=== PATIENT | female | born 1970 | race Caucasian/White ===

== ENCOUNTER 2022-01-17 07:55 | Outpatient (CLI) | payer OTHER, SELFPAY ==
--- NOTE | 2022-01-17 | TOBX_PTH ---
PATIENT: WESTON SALEEM LOC: [facility] U#:[id number] AGE/SX: 51/F ROOM: RE01/17/[address]: Dr. 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 Negative for malignancy. See comment. SJ:gigi 01/19/2022 SJ:gigi 02/02/2022 COMMENT Special stain for fungi is negative for organisms; matched control is appropriate. Clinical correlation and appropriate follow up are necessary. Case has been reviewed in consultation with Dr. Hrer who concurs with the above diagnosis. IDC:AM MICROSCOPIC DESCRIPTION Slides are reviewed. GROSS DESCRIPTION Received in fixative is one container labeled with the patient's name and designated tongue mass. The specimen consists of a piece of clayton mucosal tissue measuring 0.7 x 0.7 x 0.3 cm. The specimen is inked, serially sectioned and submitted entirely in one cassette. / CURTIS:gigi 01/18/2022 TC:5 CPT: 21260, 01446
== END 2022-01-17 23:59 | disposition home or self-care (01) ==
LOC: LABSPEC 02-02 10:15
PROVIDERS: Visit Provider Otolaryngology
DX: D37.02 Neoplasm of uncertain behavior of tongue (principal)
CPT/HCPCS: 88305; 88312

== ENCOUNTER → 2023-11-11 | Outpatient (CLI) | payer OTHER, SELFPAY ==
--- OUTSIDE RECORDS SUMMARY | 2023-11-11 08:49 | XMS RPT_ITS | CCD ---
Author Name Unknown Address [address] [place] [address] Organization [facility] Care Team Providers Care Tile Fitter Name Role Phone RAUDEL PAYTON, DR KRUSE Primary Care Physician [phone] Gadiel Aguilar DO Primary Care Provider Jocelyn bryonble GADIEL AGUILAR Primary Care Unavailable GADIEL AGUILAR Primary Care Unavailable GADIEL AGUILAR Primary Care Unavailable ROMAR DO, DR KRUSE Attending Unavailable ROMAR DO, DR KRUSE Primary Care Unavailable MARGY FELDER, DR ALISHA Whitfield Attending Unavail able ROMAR DO, DR KRUSE Primary Care Unavailable ROMAR DO, DR KRUSE Attending Unavailable ROMAR DO, DR KRUSE Primary Care Unavailable STEVIE ARIZMENDI MD Attending Unavaila ble ROMAR DO, DR KRUSE Primary Care Unavailable HIMA SEN MD Attending Unavail able ROMAR DO, DR KRUSE Primary Care Unavailable ROMAR DO, DR KRUSE Attending Unavailable ROMAR DO, DR KRUSE Primary Care Unavailable ROMAR DO, DR KRUSE Attending Unavailable ROMAR DO, DR KRUSE Primary Care Unavailable ROMAR DO, DR KRUSE Attending Unavailable ROMAR DO, DR KRUSE Primary Care Unavailable UGO FELDER, STEVIE Attending Unavaila ble ROMAR DO, DR KRUSE Primary Care Unavailable UGO FELDER, STEVIE Attending Unavaila ble ROMAR DO, DR KRUSE Primary Care Unavailable Allergies Allergy Classification Reported Allergen(s) Allergy Type Date of Onset Reaction(s) Facility (8 sources) Adhesive Tape Allergy to substance Eruption of skin (disorder) [facility] (2 sources) Adhesive Tape-Silicones; Translations: [ADHESIVE TAPE-SILICONES] Drug Intolerance 2 Other: See Comments [facility] (5 sources) Film dressing Allergy to substance blisters [facility] Medications Current Medications Medication Drug Class(es) Dates Sig (Normalized) Sig (Original) Percocet (2 sources) Opioid Agonist Start: 05-05-2018 take 1 tablet by mouth every four hours Percocet 325/5 Dose = 2 tab(s), Oral, q4h, 0 Refill(s) Start Date: 05/05/18 Status: Ordered Completed/Discontinued Medications Medication Drug Class(es) Dates Sig (Normalized) Sig (Original) 0.25 MG, 0.5 MG Dose 3 ML semaglutide 0.68 MG/ML Pen Injector (1 source) Start: 06-07-2023 End: 07-07-2023 inject 0.5 mg by subcutaneous injection every week semaglutide 2 mg/3 mL (0.25 mg or 0.5 mg dose) subcutaneous solution Dose : 0.25 mg =, Subcutaneous, qWeek, rotate injection sites, # 1 EA, 0 Refill(s), Pharmacy: [facility]/pharmacy #[id number], 176.9, cm, 06/07/23 13:22:00 EDT, Height, kg, 06/07/23 13:22:00 EDT, Dosing Weight Start Date: 06/07/23 Stop Date: 07/07/23 Status: Ordered acetaminophen 325 mg / HYDROcodone bitartrate 5 mg oral tablet (1 source) Opioid Agonist Start: 05-22-2020 End: 05-25-2020 take 1 tablet by mouth every four hours as needed for pain Garrard 325- 5 mg oral tablet Dose = 1 tab(s), Oral, q4h, PRN as needed for pain, # 12 tab(s), 0 Refill(s), Boil, 138.6 Start Date: 05/22/20 Stop Date: 05/25/20 Status: Ordered Albuterol (18 sources) beta2-Adrenergic Agonist Start: 01-03-2022 End: 02-02-2022 take 2 puff(s) by inhalation every four hours as needed for wheezing Ventolin HFA MDI (90 mcg/inh) inhalation aerosol 2 puff(s), Inhalation, q4h, PRN Shortness of breath or wheezing, use with spacer chamber. PHARMACY PLEASE DISPENSE SPACER. Okay to substitute alternative brand if needed for insurance., # 1 EA, 0 Refill(s), other reason (Rx) Start Date: 01/03/22 Stop Date: 02/02/22 Status: Ordered Problems Active Problems Problem Classification Problem Date Documented Date Episodic/Chronic Biliary tract disease (10 sources) Biliary calculus; Translations: [Cholelithiasis with obstruction] 04-17-2018 Episodic Chronic obstructive pulmonary disease and bronchiectasis (8 sources) Chronic bronchitis 01-03-2022 Chronic Diseases of mouth; excluding dental (8 sources) Oral lesion 01-03-2022 Episodic Esophageal disorders (5 sources) Gastroesophageal reflux disease 04-17-2018 Chronic Essential hypertension (4 sources) Essential hypertension; Translations: [Essential (primary) hypertension] Onset: 06-13-2023 Chronic Headache; including migraine (5 sources) Migraine 04-30-2018 Chronic Headache; including migraine (5 sources) Headache 04-17-2018 Episodic Past or Other Problems Problem Classification Problem Date Documented Da te Episodic/Chronic Other screening for suspected conditions (not mental disorders or infectious disease) (2 sources) Encounter for screening for malignant neoplasm of colon; Translations: [Encounter for screening for malignant neoplasm of colon] Onset: 04-23-2022 Episodic Results Test Name Value Interpretation Reference Range Facil ity Vital Signs Date Time Vital Sign Value Performing Clinician Facility 06-13-2023 08:46-0400 Blood Pressure Location HIMA SEN MD [facility] 06-13-2023 08:46-0400 Blood Pressure Method HIMA SEN MD [facility] 06-13-2023 08:46-0400 Body temperature 97.52 [degF] HIMA SEN MD [facility] 06-13-2023 08:46-0400 Body weight 153.1 kg HIMA SEN MD [facility] 06-13-2023 08:46-0400 Diastolic Blood Pressure Non-Invasive 95 1 HIMA SEN MD [facility] 06-13-2023 08:46-0400 Heart rate 65 /min HIMA SEN MD [facility] 06-13-2023 08:46-0400 Respiratory rate 18 /min HIMA SEN MD [facility] 06-13-2023 08:46-0400 Systolic Blood Pressure Non-Invasive 173 1 HIMA SEN MD [facility] 07-10-2022 12:59-0400 Body temperature 98.01 [degF] Radha Peralta LOFT RIGGER.INFECTIOUS DISEASE PHYSICIAN Work Phone: [facility] 07-10-2022 12:59-0400 Body weight 153.32 kg Radha Peralta LOFT RIGGER.INFECTIOUS DISEASE PHYSICIAN Work Phone: [facility] 07-10-2022 12:59-0400 Diastolic blood pressure 86 mm[Hg] Radha Peralta LOFT RIGGER.INFECTIOUS DISEASE PHYSICIAN Work Phone: [facility] 07-10-2022 12:59-0400 Heart rate 82 /min Radha Peralta LOFT RIGGER.INFECTIOUS DISEASE PHYSICIAN Work Phone: [facility] 07-10-2022 12:59-0400 Respiratory rate 16 /min Radha Peralta LOFT RIGGER.INFECTIOUS DISEASE PHYSICIAN Work Phone: [facility] 07-10-2022 12:59-0400 SaO2% (BldA) [Mass fraction] 96 % Radha Peralta LOFT RIGGER.INFECTIOUS DISEASE PHYSICIAN Work Phone: [facility] 07-10-2022 12:59-0400 Systolic blood pressure 142 mm[Hg] Radha Peralta LOFT RIGGER.INFECTIOUS DISEASE PHYSICIAN Work Phone: [facility] 04-23-2022 12:37-0400 Diastolic Blood Pressure NBP [address] ALISHA JI MD [facility] 04-23-2022 12:37-0400 Heart rate 71 /min DR ALISHA JI MD [facility] 04-23-2022 12:37-0400 Respiratory rate 12 /min DR ALISHA JI MD [facility] 04-23-2022 12:37-0400 Systolic Blood Pressure NBP [address] ALISHA JI MD [facility] 04-23-2022 12:28-0400 Diastolic Blood Pressure NBP [address] ALISHA JI MD [facility] 04-23-2022 12:28-0400 Systolic Blood Pressure NBP [address] ALISHA JI MD [facility] 04-23-2022 12:21-0400 Diastolic Blood Pressure NBP [address] ALISHA JI MD [facility] 04-23-2022 12:21-0400 Respiratory rate 15 /min DR ALISHA JI MD [facility] 04-23-2022 12:21-0400 Systolic Blood Pressure NBP [address] ALISHA JI MD [facility] 04-23-2022 12:20-0400 Heart rate 71 /min DR ALISHA JI MD [facility] 04-23-2022 12:20-0400 Respiratory rate 20 /min DR ALISHA JI MD [facility] 04-23-2022 12:10-0400 Heart rate 77 /min DR ALISHA JI MD [facility] 04-23-2022 10:39-0400 Body height 175.[address] ALISHA JI MD [facility] 04-23-2022 10:39-0400 Body temperature 98.06 [degF] DR ALISHA JI MD [facility] 04-23-2022 10:39-0400 Body weight 145.[address] ALISHA JI MD [facility] Encounters Encounter Date Encounter Type Care Provider Facility Start: 11-02-2023 End: 11-03-2023 ambulatory STEVIE ARIZMENDI MD Facility:[facility] Start: 11-02-2023 End: 11-02-2023 Patient encounter procedure STEVIE ARIZMENDI MD [facility] Start: 10-30-2023 End: 10-31-2023 ambulatory STEVIE ARIZMENDI MD Facility:[facility] Start: 10-26-2023 End: 10-27-2023 ambulatory STEVIE ARIZMNEDI MD Facility:[facility] Start: 10-26-2023 End: 10-26-2023 Patient encounter procedure STEVIE ARIZMENDI MD [facility] Start: 09-11-2023 End: 09-16-[address] URIAH STARKS DO Facility:[facility] Start: 09-11-2023 End: 09-15-[address] URIAH STARKS DO [facility] Start: 09-06-2023 End: 09-07-[address] URIAH STARKS DO Facility:[facility] Start: 06-13-2023 End: 06-13-2023 Emergency department patient visit HIMA SEN MD Facility:[facility] Start: 06-13-2023 End: 06-13-2023 Emergency department patient visit HIMA SEN MD [facility] Start: 05-15-2023 End: 05-16-[address] URIAH STARKS DO Facility:[facility] Start: 05-15-2023 End: 05-15-[address] URIAH STARKS DO [facility] Start: 04-01-2023 End: 04-02-[address] URIAH STARKS DO Facility:[facility] Start: 03-14-[address] URIAH STARKS DO Facili ty:B Start: 07-10-2022 End: 07-10-2022 ambulatory GADIEL AGUILAR Facility:[facility] Start: 07-10-2022 End: 07-10-2022 Patient encounter procedure Radha Peralta APRN.INFECTIOUS DISEASE PHYSICIAN Work Phone: [facility] Procedures Date Procedure Procedure Detail Performing Clinician Start: 07-10-2022 STREP A MOLECULAR (POC) Radha Peralta APRN.INFECTIOUS DISEASE PHYSICIAN Work Phone: Start: 05-05-[address] URIAH STARKS DO Start: 04-18-[address] URIAH STARKS DO Abdominal hysterectomy DR CURTIS STARKS DO 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) DR URIAH STARKS DO Plan of Treatment Date Care Activity Detail Author Start: 05-17-2022 Influenza vaccination INFLUENZA (#1) [facility] Start: 09-16-2021 DEPRESSION ASSESSMENT DEPRESSION ASS ESSMENT [facility] Start: 2021 SHINGRIX VACCINE (1 of 2) SHINGRIX V ACCINE (1 of 2) [facility] Start: 11-01-2017 DIABETES SCREEN DIABETES SCREEN [facility] Start: 2016 COLOGUARD (FIT-DNA) COLOGUARD (FIT-D NA) [facility] Start: 2016 Colonoscopy COLONOSCOPY [facility] Start: 2016 COLORECTAL CANCER SCREENING COLORECTAL CANCER SCREENING [facility] Start: [address] COLONOGRAPHY [facility] Start: 2016 FECAL OCCULT BLOOD FECAL OCCULT BLOO D [facility] Start: 2016 LIPID SCREEN LIPID SCREEN [facility] Start: 2016 SIGMOIDOSCOPY SIGMOIDOSCOPY [facility] Start: 2011 Mammography MAMMOGRAM [facility] Start: 2001 HPV TESTING HPV TESTING [facility] Start: 1992 PAP TESTING PAP TESTING [facility] Start: 1990 Urine microalbumin profile DTAP,TDAP ,TD (1 - Tdap) [facility] Start: 1989 HEPATITIS C SCREENING HEPATITIS C SC REENING [facility] Start: 1989 HIV SCREENING HIV SCREENING [facility] Start: 01-14-1972 COVID-19 VACCINE (#1) COVID-19 VACCI NE (#1) [facility] Start: 1971 HEPATITIS B (1 of 3 - 3-dose series) HEPATITIS B (1 of 3 - 3-dose series) [facility] Immunizations Immunization Date Immunization Notes Care Provider Fa cility 03-08-2023 tetanus toxoid, redu howard diphtheria toxoid, and acellular pertussis vaccine, adsorbed; Translations: [Boostrix (Tdap)] DR URIAH STARKS DO [facility] Payers Date Payer Category Payer Unknown 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 [id number] 2019-Present [phone] [address] [place] [address] PPO [id number] 2019 Unknown [id number] 1971 Unknown [id number] 1971 Unknown [id number] 1971 Unknown [id number] 1971 Unknown [id number] 1971 Unknown [id number] 1971 Unknown [id number] 1971 Unknown [id number] 1971 Unknown [id number] 1971 Unknown [id number] 1971 Unknown [id number] 1971 Unknown [id number] 1971 Unknown [id number] Social History Date Type Detail Facility Start: 01-03-2022 End: 09-06-2023 Tobacco smoking status Never smoked tobacco (finding) [facility] Sex Assigned At Female [facility] Start: 07-10-2022 Tobacco use and exposure Smokeless tobacco non-user [facility] Work Phone: Start: 07-10-2022 Alcohol intake Current drinke r of alcohol (finding) [facility] Start: 1970 Sex Assigned At Not on file [facility] Sex Assigned At Sex [facility] Functional Status Date Assessment Result Facility 06-13-2023 Functional Status ID band on, Call device within reach, Bed in low position, Wheels locked, Upper/Half-Length side-rails up [facility] 04-23-2022 Functional Status Independent [facility] 04-23-2022 Functional Status [facility] Mental Status Date Assessment Result Facility 06-13-2023 Mental Status Oriented x 4 [facility] 04-23-2022 Mental Status Orientation Oriented x 4 [facility] 04-23-2022 Mental Status [facility] Clinical Notes 10-22-2021 to 06-13-2023 Patient InstructionsRadha Peralta APRN.INFECTIOUS DISEASE PHYSICIAN - 07/10/2022 1:10 PM EDT Note Date & Type Note Facility 06-13-2023 Hospital Discharge instructions Patient Education 06/13/2023 08:58:07 Hypertension, New (Begin Treatment) High Blood Pressure, New, Begin Treatment Your blood pressure was high enough today to start treatment with medicines. Often healthcare providers don t know what causes high blood pressure (hypertension). But it can be controlled with lifestyle changes and medicines. High blood pressure usually has no symptoms. But it can sometimes cause headache, dizziness, blurred vision, a rushing sound in your ears, chest pain, or shortness of breath. But even without symptoms, high blood pressure that s not treated raises your risk for heart attack, heart failure, and stroke. High blood pressure is a serious health risk and shouldn t be ignored. Blood pressure measurements are given as 2 numbers. Systolic blood pressure is the upper number. This is the pressure when the heart contracts. Diastolic blood pressure is the lower number. This is the pressure when the heart relaxes between beats. You will see your blood pressure readings written together. For example, a person with a systolic pressure of 118 and a diastolic pressure of 78 will have 118/78 written in the medical record. Blood pressure is categorized as normal, elevated, or stage 1 or stage 2 high blood pressure: Normal blood pressure is systolic of less than 120 and diastolic of less than 80 (120/80) Elevated blood pressure is systolic of 120 to 129 and diastolic less than 80 Stage 1 high blood pressure is systolic is 130 to 139 or diastolic between 80 to 89 Stage 2 high blood pressure is when systolic is 140 or higher or the diastolic is 90 or higher Home care If you have high blood pressure, you should do what is listed below to lower your blood pressure. If you are taking medicines for high blood pressure, these methods may reduce or end your need for medicines in the future. Begin a weight-loss program if you are overweight. Cut back on how much salt you get in your diet. Here s how to do this: oDon t eat foods that have a lot of salt. These include olives, pickles, smoked meats, and salted potato chips. oDon t add salt to your food at the table. oUse only small amounts of salt when cooking. [employer] food labels to track how much salt is in prepared foods. oWhen eating out, ask that no additional salt be added to your food order. Begin an exercise program. Talk with your healthcare provider about the type of exercise program that would be best for you. It doesn't have to be hard. Even brisk walking for 20 minutes 3 times a week is a good form of exercise. Don t take medicines that have heart stimulants. This includes many oofz-dfe-aolnzqo cold and sinus decongestant pills and sprays, as well as diet pills. Check the warnings about high blood pressure on the label. Before purchasing any rmoz-rmv-lmkqjlo medicines or supplements, always ask the pharmacist about the product's potential interaction with your high blood pressure and your high blood pressure medicines. Stimulants such as amphetamine or cocaine could be lethal for someone with high blood pressure. Never take these. Limit how much caffeine you get in your diet. Switch to caffeine-free products. Stop smoking. If you are a long-time smoker, this can be hard. Enroll in a stop-smoking program to make it more likely that you will quit for good. Learn how to handle stress. This is an important part of any program to lower blood pressure. Learn about relaxation methods like meditation, yoga, or biofeedback. If your provider prescribed medicines, take them exactly as directed. Missing doses may cause your blood pressure get out of control. If you miss a dose or doses, check with your healthcare provider or pharmacist about what to do. Consider buying an automatic blood pressure machine. Your provider can make a recommendation. You can get one of these at most pharmacies. The [place] [employer] recommends the following guidelines for home blood pressure monitoring: Don't smoke or drink coffee or other caffeinated drinks for 30 minutes before taking your blood pressure. Go to the bathroom before the test. Relax for 5 minutes before taking the measurement. Sit with your back supported (don't sit on a couch or soft chair); keep your feet on the floor uncrossed. Place your arm on a solid flat surface (like a table) with the upper part of the arm at heart level. Place the middle of the cuff directly above the bend of the elbow. Check the monitor's instruction manual for an illustration. Take multiple readings. When you measure, take 2 to 3 readings one minute apart and record all of the results. Take your blood pressure at the same time every day, or as your healthcare provider recommends. Record the date, time, and blood pressure reading. Take the record with you to your next medical appointment. If your blood pressure monitor has a built-in memory, simply take the monitor with you to your next appointment. Call your provider if you have several high readings. Don't be frightened by a single high blood pressure reading, but if you get several high readings, check in with your healthcare provider. Note: When blood pressure reaches a systolic (top number) of 180 or higher OR diastolic (bottom number) of 110 or higher, seek emergency medical treatment. Follow-up care Because a new blood pressure medicine was started today, it s important that you have your blood pressure rechecked. This is to make sure that the medicine is working and that you have no serious side effects. Keep all your follow up appointments. Write down medicine and blood pressure questions and bring them to your next appointment. If you have pressing concerns about your new medicine or your blood pressure, call your provider. Unless told otherwise, follow up with your healthcare provider or this facility within the next 3 days. When to seek medical advice Call your healthcare provider right away if any of these occur: Blood pressure reaches a systolic (top number) of 180 or higher, OR diastolic (bottom number) of 110 or higher, seek emergency medical treatment. Chest pain or shortness of breath Severe headache Throbbing or rushing sound in the ears Nosebleed Sudden severe pain in your belly (abdomen) Extreme drowsiness, confusion, or fainting Dizziness or dizziness with a spinning sensation (vertigo) Weakness of an arm or leg or one side of the face You have problems speaking or seeing [id number] [employer]. [address] [place] [address], [place] [address]. All rights reserved. This information is not intended as a substitute for professional medical care. Always follow your healthcare professional's instructions. Follow Up Care 06/13/2023 08:36:45 With:URIAH STARKS DO Address: [address] [place] [phone]- [phone] When:2-4 days [facility] 06-13-2023 Note Discharge Instructions Thank you for allowing [facility] to assist you with your healthcare needs. The following is important discharge information regarding your hospital visit. Diagnosis from Today's Visit High blood pressure Hypertension What to Do Next Instructions from Your Care Team No qualifying data available. Post Acute Orders No qualifying data available. You Need to Schedule the Following Appointments Follow Up with URIAH STARKS DO When Within 2-4 days Where: [address] [place] [phone]- [phone] Allergies Tape (Rash) Tegaderm (blisters) Medications Please ask your primary doctor or pharmacist before taking any other medication not listed, including over the counter drugs, herbal medications, vitamins and or supplements as they may interact with your home medications. What How Much When Instructions Last Dose New hydroCHLOROthiazide (hydroCHLOROthiazide 12.5 mg oral capsule) 1 cap by mouth Once a day Printed Prescription Unchanged albuterol (albuterol 2.5 mg/ 3 mL (0.083%) inhalation solution) 3 Milliliter by inhalation Every 6 hours as needed for for wheezing Unchanged albuterol (Ventolin HFA MDI (90 mcg/ inh) inhalation aerosol) 2 puff(s) by inhalation Every 4 hours as needed for Shortness of breath or wheezing Duration: 30 Days use with spacer chamber. PHARMACY PLEASE DISPENSE SPACER. Okay to substitute alternative brand if needed for insurance. Unchanged semaglutide (semaglutide 2 mg/ 3 mL (0.25 mg or 0.5 mg dose) subcutaneous solution) 0.25 Milligram Subcutaneous Every week Duration: 30 Days rotate injection sites Please take this list to your next doctor s visit. Bring all medications you take, including over the counter medications, herbals and other supplements with you to your doctor s visit. Patients and families are reminded to discard old lists and to update any records with all medication providers or retail pharmacies. Medication Leaflets hydrochlorothiazide (GUZMAN deborah KLOR o THY jose nahomi) What is the most important information I should know about hydrochlorothiazide? You should not use this medicine if you are unable to urinate. What is hydrochlorothiazide? Hydrochlorothiazide is a thiazide diuretic (water pill) that is used to treat high blood pressure (hypertension). Hydrochlorothiazide may also be used for purposes not listed in this medication guide. What should I discuss with my healthcare provider before taking hydrochlorothiazide? You should not use hydrochlorothiazide if you are allergic to it, or if you are unable to urinate. Tell your doctor if you have ever had: kidney disease; liver disease; gout; glaucoma; low levels of potassium or sodium in your blood; high levels of calcium in your blood; a parathyroid gland disorder; diabetes; or an allergy to sulfa drugs or penicillin. Tell your doctor if you are or plan to become . If you take this medicine during , your baby may develop jaundice or other problems. You should not breastfeed while using this medicine. Hydrochlorothiazide is not approved for use by anyone younger than 18 years old. How should I take hydrochlorothiazide? Follow all directions on your prescription label and read all medication guides or instruction sheets. Your doctor may occasionally change your dose. Use the medicine exactly as directed. Call your doctor if you have ongoing vomiting or diarrhea, or if you are sweating more than usual. You can easily become dehydrated while taking this medicine, which can lead to severely low blood pressure or a serious electrolyte imbalance. Your blood pressure will need to be checked often. Your blood and urine may be tested if you have been vomiting or are dehydrated. If you need surgery, tell your surgeon you currently use this medicine. You may need to stop for a short time. Keep using this medicine as directed, even if you feel well. High blood pressure often has no symptoms. You may need to use blood pressure medicine for the rest of your life. Store at room temperature away from moisture, heat, and freezing. Keep the bottle tightly closed when not in use. What happens if I miss a dose? Take the medicine as soon as you can, but skip the missed dose if it is almost time for your next dose. Do not take two doses at one time. What happens if I overdose? Seek emergency medical attention or call the Poison Help line at . Overdose symptoms may include nausea, dizziness, dry mouth, thirst, and muscle pain or weakness. What should I avoid while taking hydrochlorothiazide? Hydrochlorothiazide may increase your risk of skin cancer. Avoid sunlight or tanning beds. Wear protective clothing and use sunscreen (SPF 30 or higher) when you are outdoors. Your doctor may want you to have skin examinations on a regular basis. Drinking alcohol with this medicine can cause side effects. Avoid getting up too fast from a sitting or lying position, or you may feel dizzy. Avoid becoming overheated or dehydrated during exercise, in hot weather, or by not drinking enough fluids. Follow your doctor's instructions about the type and amount of liquids you should drink. In some cases, drinking too much liquid can be as unsafe as not drinking enough. What are the possible side effects of hydrochlorothiazide? Get emergency medical help if you have signs of an allergic reaction (hives, difficult breathing, swelling in your face or throat) or a severe skin reaction (fever, sore throat, burning eyes, skin pain, red or purple skin rash with blistering and peeling). Call your doctor at once if you have: a light-headed feeling; eye pain, vision problems; jaundice (yellowing of the skin or eyes); pale skin, easy bruising, unusual bleeding (nose, mouth, vagina, or rectum); shortness of breath, wheezing, cough with foamy mucus, chest pain; dehydration symptoms--feeling very thirsty or hot, being unable to urinate, heavy sweating, or hot and dry skin; or signs of an electrolyte imbalance--increased thirst or urination, confusion, vomiting, constipation, muscle pain, leg cramps, bone pain, lack of energy, irregular heartbeats, tingly feeling. Common side effects may include: weakness; feeling like you might pass out; severe pain in your upper stomach spreading to your back, nausea and vomiting; fever, chills, tiredness, mouth sores, skin sores, easy bruising, unusual bleeding, pale skin, cold hands and feet, feeling light-headed or short of breath; or electrolyte imbalance. This is not a complete list of side effects and others may occur. Call your doctor for medical advice about side effects. You may report side effects to FDA at 0-062-CMV-3224. What other drugs will affect hydrochlorothiazide? Taking this medicine with other drugs that make you light-headed can worsen this effect. Ask your doctor before using opioid medication, a sleeping pill, a muscle relaxer, or medicine for anxiety or seizures. Tell your doctor about all your other medicines, especially: cholestyramine, colestipol; insulin or oral diabetes medicine; lithium; other blood pressure medications; steroid medicine; or NSAIDs (nonsteroidal anti-inflammatory drugs)--aspirin, ibuprofen (Advil, Motrin), naproxen (Aleve), celecoxib, diclofenac, indomethacin, meloxicam, and others. This list is not complete. Other drugs may affect hydrochlorothiazide, including prescription and ynfn-dwn-riyoatp medicines, vitamins, and herbal products. Not all possible drug interactions are listed here. Where can I get more information? Your pharmacist can provide more information about hydrochlorothiazide. Remember, keep this and all other medicines out of the reach of children, never share your medicines with others, and use this medication only for the indication prescribed. Every effort has been made to ensure that the information provided by [employer]. ('[employer]') is accurate, up-to-date, and complete, but no guarantee is made to that effect. Drug information contained herein may be time sensitive. [employer] information has been compiled for use by healthcare practitioners and consumers in the [place] and therefore [employer] does not warrant that uses outside of the [place] are appropriate, unless specifically indicated otherwise. [employer] drug information does not endorse drugs, diagnose patients or recommend therapy. [employer] drug information is an informational resource designed to assist licensed healthcare practitioners in caring for their patients and/or to serve consumers viewing this service as a supplement to, and not a substitute for, the expertise, skill, knowledge and judgment of healthcare practitioners. The absence of a warning for a given drug or drug combination in no way should be construed to indicate that the drug or drug combination is safe, effective or appropriate for any given patient. [employer] does not assume any responsibility for any aspect of healthcare administered with the aid of information [employer] provides. The information contained herein is not intended to cover all possible uses, directions, precautions, warnings, drug interactions, allergic reactions, or adverse effects. If you have questions about the drugs you are taking, check with your doctor, nurse or pharmacist. Copyright 6075-6722 [employer]. Version: 13.. Revision Date: 10/25/2020. Education Materials High Blood Pressure, New, Begin Treatment Your blood pressure was high enough today to start treatment with medicines. Often healthcare providers don t know what causes high blood pressure (hypertension). But it can be controlled with lifestyle changes and medicines. High blood pressure usually has no symptoms. But it can sometimes cause headache, dizziness, blurred vision, a rushing sound in your ears, chest pain, or shortness of breath. But even without symptoms, high blood pressure that s not treated raises your risk for heart attack, heart failure, and stroke. High blood pressure is a serious health risk and shouldn t be ignored. Blood pressure measurements are given as 2 numbers. Systolic blood pressure is the upper number. This is the pressure when the heart contracts. Diastolic blood pressure is the lower number. This is the pressure when the heart relaxes between beats. You will see your blood pressure readings written together. For example, a person with a systolic pressure of 118 and a diastolic pressure of 78 will have 118/78 written in the medical record. Blood pressure is categorized as normal, elevated, or stage 1 or stage 2 high blood pressure: Normal blood pressure is systolic of less than 120 and diastolic of less than 80 (120/80) Elevated blood pressure is systolic of 120 to 129 and diastolic less than 80 Stage 1 high blood pressure is systolic is 130 to 139 or diastolic between 80 to 89 Stage 2 high blood pressure is when systolic is 140 or higher or the diastolic is 90 or higher Home care If you have high blood pressure, you should do what is listed below to lower your blood pressure. If you are taking medicines for high blood pressure, these methods may reduce or end your need for medicines in the future. Begin a weight-loss program if you are overweight. Cut back on how much salt you get in your diet. Here s how to do this: oDon t eat foods that have a lot of salt. These include olives, pickles, smoked meats, and salted potato chips. oDon t add salt to your food at the table. oUse only small amounts of salt when cooking. [employer] food labels to track how much salt is in prepared foods. oWhen eating out, ask that no additional salt be added to your food order. Begin an exercise program. Talk with your healthcare provider about the type of exercise program that would be best for you. It doesn't have to be hard. Even brisk walking for 20 minutes 3 times a week is a good form of exercise. Don t take medicines that have heart stimulants. This includes many lzsy-zfj-jheonvp cold and sinus decongestant pills and sprays, as well as diet pills. Check the warnings about high blood pressure on the label. Before purchasing any xxvu-xjl-ckraflp medicines or supplements, always ask the pharmacist about the product's potential interaction with your high blood pressure and your high blood pressure medicines. Stimulants such as amphetamine or cocaine could be lethal for someone with high blood pressure. Never take these. Limit how much caffeine you get in your diet. Switch to caffeine-free products. Stop smoking. If you are a long-time smoker, this can be hard. Enroll in a stop-smoking program to make it more likely that you will quit for good. Learn how to handle stress. This is an important part of any program to lower blood pressure. Learn about relaxation methods like meditation, yoga, or biofeedback. If your provider prescribed medicines, take them exactly as directed. Missing doses may cause your blood pressure get out of control. If you miss a dose or doses, check with your healthcare provider or pharmacist about what to do. Consider buying an automatic blood pressure machine. Your provider can make a recommendation. You can get one of these at most pharmacies. The [place] [employer] recommends the following guidelines for home blood pressure monitoring: Don't smoke or drink coffee or other caffeinated drinks for 30 minutes before taking your blood pressure. Go to the bathroom before the test. Relax for 5 minutes before taking the measurement. Sit with your back supported (don't sit on a couch or soft chair); keep your feet on the floor uncrossed. Place your arm on a solid flat surface (like a table) with the upper part of the arm at heart level. Place the middle of the cuff directly above the bend of the elbow. Check the monitor's instruction manual for an illustration. Take multiple readings. When you measure, take 2 to 3 readings one minute apart and record all of the results. Take your blood pressure at the same time every day, or as your healthcare provider recommends. Record the date, time, and blood pressure reading. Take the record with you to your next medical appointment. If your blood pressure monitor has a built-in memory, simply take the monitor with you to your next appointment. Call your provider if you have several high readings. Don't be frightened by a single high blood pressure reading, but if you get several high readings, check in with your healthcare provider. Note: When blood pressure reaches a systolic (top number) of 180 or higher OR diastolic (bottom number) of 110 or higher, seek emergency medical treatment. Follow-up care Because a new blood pressure medicine was started today, it s important that you have your blood pressure rechecked. This is to make sure that the medicine is working and that you have no serious side effects. Keep all your follow up appointments. Write down medicine and blood pressure questions and bring them to your next appointment. If you have pressing concerns about your new medicine or your blood pressure, call your provider. Unless told otherwise, follow up with your healthcare provider or this facility within the next 3 days. When to seek medical advice Call your healthcare provider right away if any of these occur: Blood pressure reaches a systolic (top number) of 180 or higher, OR diastolic (bottom number) of 110 or higher, seek emergency medical treatment. Chest pain or shortness of breath Severe headache Throbbing or rushing sound in the ears Nosebleed Sudden severe pain in your belly (abdomen) Extreme drowsiness, confusion, or fainting Dizziness or dizziness with a spinning sensation (vertigo) Weakness of an arm or leg or one side of the face You have problems speaking or seeing 2514-7637 [employer]. [address] [place] [address]. All rights reserved. This information is not intended as a substitute for professional medical care. Always follow your healthcare professional's instructions. Additional Information VACCINATE! IT SAVES LIVES! Members of the community who have not yet received the COVID-19 vaccine and would like to receive it can visit one of [facility] vaccine clinics. There are many vaccine clinic locations within the [facility]. For locations and available times, please visit [email or web address] It is important to note that some COVID mobile vaccine clinics are held outdoors and may be canceled in rainy or stormy conditions. To learn more about pediatric vaccinations (ages 5-11), we invite you to visit the [facility] webpage. https://www.[email or web address].org/pag es/2487-Uthlm-Wuhptmfjhbv-Frequent zq-Xieot-Vwfyhlzmj.html To learn more about the COVID-19 vaccine, we invite you to visit the CDC website for a list of frequently asked questions. https://www.cdc.gov/coronavirus/-ncov/vaccines/faq.html [facility] Patient Portal Access Instructions: Stay connected with your healthcare team and access your personal medical information anytime with the [employer] Patient Portal. If you would like a full copy of your medical records please contact the [facility] Medical Records Department Saturday through Saturday between 8a.m. and 4:30p.m. Please follow the directions below to access the portal: 1.Access the email account you provided upon registration to the [facility].2.Look for an invitation email from [facility].3.Open the email and access the invitation link: Accept Invitation to [facility].Fill in the required lott to create your account. Sign into [email or web address] with your username and password that you created in the above steps to stay up to date. You can then view a summary of results, a summary of your visits, and the ability to download your summaries to your computer or send the information securely to a physician. Remember that your healthcare information is confidential, so carefully consider who you will allow to register on the [employer] Patient Portal for access to your information. You can also access the [employer] Patient Portal on the [facility] [facility]. Simply click on Health Records under Health Data and then click on the [employer] logo. HOW TO SAFELY DISPOSE OF PRESCRIPTION MEDICATIONS Please use one of the following methods to safely dispose of your unused medications. 1.Use a drug disposal kit: the drug disposal pouch allows you to safely discard your old and unused drugs. Ask your nurse to give you one when you are discharged.2.Visit a local take-back location: Many local pharmacies and police departments have programs that collect old and unwanted prescription drugs. Call your local pharmacy or go to http://bit.ly/2B1Ve2t to find one close to you.3.Make use of household items: Use cat litter or old coffee grounds to dispose medications if other options are not available. Mix your drugs with these household products, seal them in an airtight container and throw it into the garbage. Call [facility]: [phone] to be sure your drugs can be disposed of in this way. Some medicines may require a different approach.4.Never flush your medications down the toilet. IF YOU HAVE BEEN PRESCRIBED AN OPIOIDS FOR PAIN If you have been prescribed an opioid (such as hydrocodone, oxycodone or morphine), it is critical to understand the possible side effects and risks of opioid pain medications. Even when taken as directed, opioids can have several side effects including: Tolerance, meaning you might need to take more of a medication for the same pain relief. Nausea, vomiting and/or constipation. Sleepiness, dizziness, dry mouth, confusion, depression or itching. Physical dependence, meaning you have withdrawal symptoms when a medication is stopped ? this can develop within a few days. KNOW YOUR RESPONSIBILITIES It is important to know exactly how much and how often to take the opioid pain medications you are prescribed. Never take opioids in higher amounts or more often than prescribed. Do not combine opioids with alcohol or other drugs that cause drowsiness, such as benzodiazepines, also known as benzos, including diazepam and alprazolam, muscle relaxants or sleep aids. Never sell or share prescription opioids. This is illegal. Store opioids in a secure place and out of reach of others (including children, family, friends and visitors). The last page(s) of this document has been signed and retained as a CHART COPY Signatures Patient Education Materials Hypertension, New (Begin Treatment) Medication Leaflets hydrochlorothiazide My discharge plan and instructions have been reviewed and explained to me and I,ALMA SALEEM understand my current condition and have read and understand these discharge instructions. I have received a written copy of the plan/instructions. If I have questions, I am aware that I should contact my doctor. 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 Author Type: Nurse Practitioner Type: Progress Notes Filed: 07/10/2022 1:33 PM Note Text: This note was created using NoteWriter. Subjective Alma Saleem is a 51 year old female. 51 year old female with no significant PMH presents for sore throat. Acute onset last night +sore throat +swollen glands Denies cough or congestion. Denies accompanying URI sx Denies difficulty handling secretions. Has used OTC Tylenol and cough drops. Denies ill contacts, states she works at [employer] The history is provided by the patient. Sore Throat This is a new problem. The current episode started yesterday. The problem has been gradually worsening. Neither side of throat is experiencing more pain than the other. There has been no fever. The pain is at a severity of 5/10. The pain is moderate. Associated symptoms include swollen glands. Pertinent negatives include no abdominal pain, congestion, coughing, diarrhea, drooling, ear discharge, ear pain, headaches, hoarse voice, plugged ear sensation, neck pain, shortness of breath, stridor, trouble swallowing or vomiting. She has had no exposure to strep or mono. She has tried NSAIDs for the symptoms. The treatment provided mild relief. PAST MEDICAL HISTORY Diagnosis Date NEGATIVE MEDICAL HISTORY PAST SURGICAL HISTORY Procedure Laterality Date LIG/TRNSXJ FLP TUBE ABDL/VAG APPR UNI/BI Tubal ligation SEPTOPLASTY/SUBMUCOUS RESECJ W/WO CARTILAGE GRF Septoplasty ALLERGIES Tape [Adhesive Tape-Silicones] MEDICATIONS albuterol HFA (PROVENTIL HFA, VENTOLIN HFA) 90 mcg/actuation inhaler Inhale 2 Puffs as instructed every 6 hours as needed for wheezing/shortness of breath. (Patient not taking: Reported on 07/10/2022) ProAir RespiClick 90 mcg/actuation breath activated (albuterol sulfate) Inhale 2 Puffs as instructed every 4 hours as needed. (Patient not taking: Reported on 07/10/2022) albuterol (PROVENTIL) 2.5 mg /3 mL (0.083 %) nebulizer solution Use 3 mL via nebulizer every 4 hours as needed for wheezing/shortness of breath. Use over 5-15minutes. (Patient not taking: Reported on 07/10/2022) predniSONE (DELTASONE) 20 mg tablet Prednisone 40 mg (2-20mg tablets) po QD for 5 days (Patient not taking: No sig reported) guaiFENesin (MUCINEX) 600 mg 12 hr tablet Take 2 tablets by mouth twice daily. (Patient not taking: Reported on 07/10/2022) benzonatate (TESSALON PERLES) 100 mg capsule Take 1 capsule by mouth three times daily as needed. albuterol (PROVENTIL) 5 mg/mL nebu Inhale 0.5 mL as instructed one time only for 1 dose. 1 DOSE NOW - BACK OFFICE. PLACE 0.5 ML PER DROPPER AND 2.5 ML OF NORMAL SALINE INTO RESERVOIR. (Patient not taking: Reported on 10/01/2019 ) albuterol HFA (VENTOLIN HFA) 90 mcg/actuation inhaler Inhale 2 Puffs as instructed every 4 hours as needed for Wheezing/Shortness of Breath. (Patient not taking: No sig reported) FAMILY HISTORY Problem Relation Age of Onset other (tumor [Other]) Sister tumor removed from left ventricle None Mother None Father None Sister None Daughter None Son Social History Tobacco Use Smoking status: Never Smokeless tobacco: Never Substance Use Topics Alcohol use: Yes Comment: in past Drug use: No Review of Systems Constitutional: Positive for fatigue. Negative for activity change, appetite change, chills and diaphoresis. HENT: Positive for sore throat. Negative for congestion, drooling, ear discharge, ear pain, hoarse voice, postnasal drip, sinus pressure, sinus pain and trouble swallowing. Eyes: Negative for pain, discharge, redness and itching. Respiratory: Negative for apnea, cough, choking, chest tightness, shortness of breath and stridor. Cardiovascular: Negative for chest pain, palpitations and leg swelling. Gastrointestinal: Negative for abdominal pain, diarrhea and vomiting. Musculoskeletal: Negative for neck pain. Skin: Negative for color change, pallor, rash and wound. Allergic/Immunologic: Positive for environmental allergies. Negative for food allergies and immunocompromised state. Neurological: Negative for dizziness, facial asymmetry and headaches. Hematological: Positive for adenopathy. Psychiatric/Behavioral: Negative for agitation and behavioral problems. Objective BP 142/86 Pulse 82 Temp 36.7 ?C (98 ?F) Resp 16 Wt (!) 153.3 kg (338 lb) LMP 02/11/2011 SpO2 96% Physical Exam Vitals and nursing note reviewed. Constitutional: General: She is not in acute distress. Appearance: Normal appearance. She is normal weight. She is not ill-appearing, toxic-appearing or diaphoretic. HENT: Head: Normocephalic and atraumatic. Right Ear: Ear canal and external ear normal. Left Ear: Ear canal and external ear normal. Nose: Nose normal. No congestion or rhinorrhea. Mouth/Throat: Mouth: Mucous membranes are moist. Pharynx: Posterior oropharyngeal eryth (more content not included)... [facility] 07-10-2022 Instructions Radha Peralta APRN.[facility] - 07/10/2022 1:22 PM EDT [facility] PATIENT INFO PHARYNGITIS OVERVIEW A sore throat (pharyngitis) is a common problem, and usually is caused by a viral or bacterial infection. Sore throat usually resolves on its own without complications in adults, although it is important to know when to seek medical attention. Viruses can cause a sore throat and other upper respiratory infections, such as the common cold. Sore throat caused by a virus is not treated with antibiotics, but instead may be treated with rest, pain medication, and other therapies aimed at relieving symptoms. Strep throat is a particular kind of pharyngitis that is caused by a bacterium known as group A streptococcus (GAS). Strep throat is treated with a course of antibiotics. SORE THROAT SYMPTOMS Viral pharyngitis -- Most people with a sore throat have a virus. The most common viruses are those that cause upper respiratory infections, such as the common cold. Symptoms of a viral infection can include: A runny or congested nose Irritation or redness of the eyes Cough, hoarseness, or soreness in the roof of the mouth Some viruses cause a fever and can make you feel quite ill. Strep throat -- Approximately 10 percent of adults with a sore throat have strep throat. Signs and symptoms of strep throat include the following: Pain in the throat Fever (temperature greater than 100.4 F or 38 C) Enlarged lymph glands in the neck White patches of pus on the side or back of the throat No cough, runny nose, or irritation/redness of the eyes Other infections -- Many other less common but more serious infections can cause a sore throat, including mononucleosis (mono), influenza (the flu), N. gonococcus (gonorrhea), human immunodeficiency virus (HIV), and others. When to seek urgent help -- See your doctor or nurse immediately if you have a sore throat along with any of the following: Difficulty breathing Skin rash Drooling because you cannot swallow Swelling of the neck or tongue Stiff neck or difficulty opening the mouth SORE THROAT DIAGNOSIS Most people with a sore throat get better without treatment. There is no specific treatment for a sore throat caused by usual cold viruses. Is it strep or not? -- A combination of symptoms (fever, enlarged glands in the neck, white patches on your tonsils, and no cough) can help in determining if you have strep. If you have two or more symptoms, a rapid test or throat culture may be done. People with fewer than two symptoms usually do not need testing or treatment for strep throat. Rapid test -- The rapid test determines if there are streptococcus bacteria on a throat swab. The test can be done in a clinician's office and the results are available within a few minutes. The test is accurate in most cases, although a small percentage of tests are falsely negative (the bacteria are present but the test is negative). Throat culture -- A throat culture involves swabbing the throat, sending the swab to a laboratory, and waiting 24 to 48 hours for the results. Throat cultures are slightly more accurate than the rapid test. TREATMENT OF SORE THROAT Sore throat treatment -- Antibiotics do not help throat pain caused by a virus and are not recommended. Sore throat caused by viral infections usually lasts four to five days. During this time, treatments to reduce pain may be helpful. Several therapies can help to relieve throat pain. Pain medication -- You can treat your throat pain with a mild pain reliever such as acetaminophen (Tylenol ) or a non-steroidal anti-inflammatory agent such as ibuprofen or naproxen (Motrin or Aleve ). Oral rinses -- Salt-water gargles are an old stand-by for throat pain. It is not clear that salt water works to relieve pain, but it is unlikely to be harmful. Most recipes suggest 1/4 to 1/2 teaspoon of salt per one cup (8 ounces) of warm water. Sprays -- Sprays containing topical anesthetics (eg, benzocaine, phenol) are available to treat sore throat. However, such sprays are no more effective than sucking on hard candy. Lozenges -- A variety of lozenges (cough drops) are available to treat throat pain or relieve dryness. However, it is not clear that lozenges work any better than other forms of hard candy, which are generally less expensive. Other treatments -- Other treatments that may help with throat pain include sipping warm beverages (eg, honey or lemon tea, chicken soup), cold beverages, or eating cold or frozen desserts (eg, ice cream, popsicles). Alternative therapies -- Health food stores, vitamin outlets, and Internet Web sites offer alternative treatments for relief of sore throat pain. We do not recommend these type of treatments due to the risks of contamination with pesticides/herbicides, inaccurate labeling and dosing information, and a lack of studies showing that these treatments are safe and effective. Strep throat -- Although strep throat typically resolves on its own within two to five days, treatment with antibiotics is recommended for adults whose rapid test or throat culture is positive for strep throat. Penicillin, or an antibiotic related to penicillin, is the treatment of choice for strep throat. It is usually given in pill or liquid form two to four times per day for 10 days. A one time injection of penicillin is also available. People who are allergic to penicillin are given an alternate antibiotic. It is important to finish the entire course of treatment to completely eliminate the infection. If symptoms do not begin to improve or worsen by three days of antibiotic treatment, you should see your doctor or nurse again. Return to work/school -- If you have been diagnosed with strep throat, stay home from work or school until you have completed 24 hours of antibiotics. Within 24 hours of beginning antibiotic treatment, you will feel better and will be less contagious [1]. If you have a sore throat (not diagnosed as strep), you may participate in your usual activities as soon as you feel well. SORE THROAT PREVENTION Hand washing is an essential and highly effective way to prevent the spread of infection. Wet your hands with water and plain soap, and rub them together for 15 to 30 seconds. Pay special attention to the fingernails, between the fingers, and the wrists. Rinse your hands thoroughly, and dry them with a clean towel. Alcohol-based hand rubs are a good alternative for disinfecting hands if a sink is not available. Hand rubs should be spread over the entire surface of hands, fingers, and wrists until dry, and may be used several times. These rubs can be used repeatedly without skin irritation or loss of effectiveness. Hand rubs are available as a liquid or wipe in small, portable sizes that are easy to carry in a pocket or handbag. When a sink is available, visibly soiled hands should be washed with soap and water. Wash your hands after coughing, blowing the nose, or sneezing. While it is not always possible to avoid being near a person who is sick, avoiding touching your eyes, nose, or mouth to prevent the spread of infection. In addition, tissues should be used to cover the mouth when sneezing or coughing. These used tissues should be disposed of promptly. Sneezing/coughing into your sleeve (at the inner elbow) is another way to contain sprays of saliva and secretions and will not contaminate your hand documented in this encounter [facility] 07-10-2022 History of Present illness Narrative This note was created using Veoh[employer]. Subjective Alma Saleem is a 51 year old female. 51 year old female with no significant PMH presents for sore throat. Acute onset last night +sore throat +swollen glands Denies cough or congestion. Denies accompanying URI sx Denies difficulty handling secretions. Has used OTC Tylenol and cough drops. Denies ill contacts, states she works at [employer] The history is provided by the patient. Sore Throat This is a new problem. The current episode started yesterday. The problem has been gradually worsening. Neither side of throat is experiencing more pain than the other. There has been no fever. The pain is at a severity of 5/10. The pain is moderate. Associated symptoms include swollen glands. Pertinent negatives include no abdominal pain, congestion, coughing, diarrhea, drooling, ear discharge, ear pain, headaches, hoarse voice, plugged ear sensation, neck pain, shortness of breath, stridor, trouble swallowing or vomiting. She has had no exposure to strep or mono. She has tried NSAIDs for the symptoms. The treatment provided mild relief. PAST MEDICAL HISTORY Diagnosis Date NEGATIVE MEDICAL HISTORY PAST SURGICAL HISTORY Procedure Laterality Date LIG/TRNSXJ FLP TUBE ABDL/VAG APPR UNI/BI Tubal ligation SEPTOPLASTY/SUBMUCOUS RESECJ W/WO CARTILAGE GRF Septoplasty ALLERGIES Tape [Adhesive Tape-Silicones] MEDICATIONS albuterol HFA (PROVENTIL HFA, VENTOLIN HFA) 90 mcg/actuation inhaler Inhale 2 Puffs as instructed every 6 hours as needed for wheezing/shortness of breath. (Patient not taking: Reported on 07/10/2022) ProAir RespiClick 90 mcg/actuation breath activated (albuterol sulfate) Inhale 2 Puffs as instructed every 4 hours as needed. (Patient not taking: Reported on 07/10/2022) albuterol (PROVENTIL) 2.5 mg /3 mL (0.083 %) nebulizer solution Use 3 mL via nebulizer every 4 hours as needed for wheezing/shortness of breath. Use over 5-15minutes. (Patient not taking: Reported on 07/10/2022) predniSONE (DELTASONE) 20 mg tablet Prednisone 40 mg (2-20mg tablets) po QD for 5 days (Patient not taking: No sig reported) guaiFENesin (MUCINEX) 600 mg 12 hr tablet Take 2 tablets by mouth twice daily. (Patient not taking: Reported on 07/10/2022) benzonatate (TESSALON PERLES) 100 mg capsule Take 1 capsule by mouth three times daily as needed. albuterol (PROVENTIL) 5 mg/mL nebu Inhale 0.5 mL as instructed one time only for 1 dose. 1 DOSE NOW - BACK OFFICE. PLACE 0.5 ML PER DROPPER AND 2.5 ML OF NORMAL SALINE INTO RESERVOIR. (Patient not taking: Reported on 10/01/2019 ) albuterol HFA (VENTOLIN HFA) 90 mcg/actuation inhaler Inhale 2 Puffs as instructed every 4 hours as needed for Wheezing/Shortness of Breath. (Patient not taking: No sig reported) FAMILY HISTORY Problem Relation Age of Onset other (tumor [Other]) Sister tumor removed from left ventricle None Mother None Father None Sister None Daughter None Son Social History Tobacco Use Smoking status: Never Smokeless tobacco: Never Substance Use Topics Alcohol use: Yes Comment: in past Drug use: No Review of Systems Constitutional: Positive for fatigue. Negative for activity change, appetite change, chills and diaphoresis. HENT: Positive for sore throat. Negative for congestion, drooling, ear discharge, ear pain, hoarse voice, postnasal drip, sinus pressure, sinus pain and trouble swallowing. Eyes: Negative for pain, discharge, redness and itching. Respiratory: Negative for apnea, cough, choking, chest tightness, shortness of breath and stridor. Cardiovascular: Negative for chest pain, palpitations and leg swelling. Gastrointestinal: Negative for abdominal pain, diarrhea and vomiting. Musculoskeletal: Negative for neck pain. Skin: Negative for color change, pallor, rash and wound. Allergic/Immunologic: Positive for environmental allergies. Negative for food allergies and immunocompromised state. Neurological: Negative for dizziness, facial asymmetry and headaches. Hematological: Positive for adenopathy. Psychiatric/Behavioral: Negative for agitation and behavioral problems. Objective BP 142/86 Pulse 82 Temp 36.7 C (98 F) Resp 16 Wt (!) 153.3 kg (338 lb) LMP 02/11/2011 SpO2 96% Physical Exam Vitals and nursing note reviewed. Constitutional: General: She is not in acute distress. Appearance: Normal appearance. She is normal weight. She is not ill-appearing, toxic-appearing or diaphoretic. HENT: Head: Normocephalic and atraumatic. Right Ear: Ear canal and external ear normal. Left Ear: Ear canal and external ear normal. Nose: Nose normal. No congestion or rhinorrhea. Mouth/Throat: Mouth: Mucous membranes are moist. Pharynx: Posterior oropharyngeal erythema (bilateral posterio erythema. Uvula midline) present. No oropharyngeal exudate. Eyes: General: Right eye: No discharge. Left eye: No discharge. Extraocular Movements: Extraocular movements intact. Conjunctiva/sclera: Conjunctivae normal. Pupils: Pupils are equal, round, and reactive to light. Cardiovascular: Rate and Rhythm: Normal rate and regular rhythm. Pulses: Normal pulses. Heart sounds: Normal heart sounds. No murmur heard. No friction rub. Pulmonary: Effort: Pulmonary effort is normal. No respiratory distress. Breath sounds: Normal breath sounds. No stridor. No wheezing, rhonchi or rales. Chest: Chest wall: No tenderness. Abdominal: General: Abdomen is flat. There is no distension. Palpations: Abdomen is soft. There is no mass. Tenderness: There is no abdominal tenderness. There is no right CVA tenderness, left CVA tenderness, guarding or rebound. Hernia: No hernia is present. Musculoskeletal: General: No swelling, tenderness, deformity or signs of injury. Normal range of motion. Cervical back: Normal range of motion and neck supple. No rigidity. Right lower leg: No edema. Left lower leg: No edema. Lymphadenopathy: Cervical: No cervical adenopathy. Skin: General: Skin is warm and dry. Capillary Refill: Capillary refill takes less than 2 seconds. Coloration: Skin is not jaundiced or pale. Findings: No bruising, erythema, lesion or rash. Neurological: General: No focal deficit present. Mental Status: She is alert and oriented to person, place, and time. Cranial Nerves: No cranial nerve deficit. Sensory: No sensory deficit. Motor: No weakness. Coordination: Coordination normal. Gait: Gait normal. Psychiatric: Mood and Affect: Mood normal. Behavior: Behavior normal. Thought Content: Thought content normal. Judgment: Judgment normal. Assessment and Plan ASSESSMENT/PLAN: 1. Pharyngitis, unspecified etiology - ICD9: 462, ICD10: J02.9 - suspect viral - Alere Strep Test NEGATIVE, no culture pending - Discussed supportive care treatment with fluids, rest and analgesia. - The patient may also use OTC cough and cold meds as needed, warm salt water gargles, throat lozenges and/or OTC throat spray as needed, and nasal saline gtts and suction prn. - Contagious dz precautions discussed- including considered contagious until on antibiotics for 24 hours - The patient should follow up in 3-5 days if symptoms persist or worsen - Call back if drooling, increased temperature, symptoms of dehydration and/or still sick in one week - STREP A MOLECULAR (POC) Radha Peralta APRN.INFECTIOUS DISEASE PHYSICIAN documented in this encounter [facility] 04-23-2022 Hospital Discharge instructions Patient Education 04/23/2022 12:25:24 Moderate Conscious Sedation, Adult, Care After Moderate Conscious Sedation, Adult, Care After These instructions provide you with information about caring for yourself after your procedure. Your health care provider may also give you more specific instructions. Your treatment has been planned according to current medical practices, but problems sometimes occur. Call your health care provider if you have any problems or questions after your procedure. What can I expect after the procedure? After your procedure, it is common: To feel sleepy for several hours. To feel clumsy and have poor balance for several hours. To have poor judgment for several hours. To vomit if you eat too soon. Follow these instructions at home: For at least 24 hours after the procedure: Do not: ?Participate in activities where you could fall or become injured. ?Drive. ?Use heavy machinery. ?Drink alcohol. ?Take sleeping pills or medicines that cause drowsiness. ?Make important decisions or sign legal documents. ?Take care of children on your own. Rest. Eating and drinking Follow the diet recommended by your health care provider. If you vomit: ?Drink water, juice, or soup when you can drink without vomiting. ?Make sure you have little or no nausea before eating solid foods. General instructions Have a responsible adult stay with you until you are awake and alert. Take efjp-zky-ncqmoyc and prescription medicines only as told by your health care provider. If you smoke, do not smoke without supervision. Keep all follow-up visits as told by your health care provider. This is important. Contact a health care provider if: You keep feeling nauseous or you keep vomiting. You feel light-headed. You develop a rash. You have a fever. Get help right away if: You have trouble breathing. This information is not intended to replace advice given to you by your health care provider. Make sure you discuss any questions you have with your health care provider. Document Released: 06/23/2014 Document Revised: 08/15/2018 Document Reviewed: 12/22/2016 [employer] Patient Education 2020 [email or web address]. 04/23/2022 12:25:14 Colon Polyps Colon Polyps Polyps are tissue growths inside the body. Polyps can grow in many places, including the large intestine (colon). A polyp may be a round bump or a mushroom-shaped growth. You could have one polyp or several. Most colon polyps are noncancerous (benign). However, some colon polyps can become cancerous over time. Finding and removing the polyps early can help prevent this. What are the causes? The exact cause of colon polyps is not known. What increases the risk? You are more likely to develop this condition if you: Have a family history of colon cancer or colon polyps. Are older than 50 or older than 45 if you are . Have inflammatory bowel disease, such as ulcerative colitis or Crohn's disease. Have certain hereditary conditions, such as: ?Familial adenomatous polyposis. ?Sung syndrome. ?Turcot syndrome. ?Peutz Jeghers syndrome. Are overweight. Smoke cigarettes. Do not get enough exercise. Drink too much alcohol. Eat a diet that is high in fat and red meat and low in fiber. Had childhood cancer that was treated with abdominal radiation. What are the signs or symptoms? Most polyps do not cause symptoms. If you have symptoms, they may include: Blood coming from your rectum when having a bowel movement. Blood in your stool. The stool may look dark red or black. Abdominal pain. A change in bowel habits, such as constipation or diarrhea. How is this diagnosed? This condition is diagnosed with a colonoscopy. This is a procedure in which a lighted, flexible scope is inserted into the anus and then passed into the colon to examine the area. Polyps are sometimes found when a colonoscopy is done as part of routine cancer screening tests. How is this treated? Treatment for this condition involves removing any polyps that are found. Most polyps can be removed during a colonoscopy. Those polyps will then be tested for cancer. Additional treatment may be needed depending on the results of testing. Follow these instructions at home: Lifestyle Maintain a healthy weight, or lose weight if recommended by your health care provider. Exercise every day or as told by your health care provider. Do not use any products that contain nicotine or tobacco, such as cigarettes and e-cigarettes. If you need help quitting, ask your health care provider. If you drink alcohol, limit how much you have: ?0 1 drink a day for women. ? 0 2 drinks a day for men. Be aware of how much alcohol is in your drink. In the [place] one drink equals one 12 oz bottle of beer (355 mL), one 5 oz glass of wine (148 mL), or one 1 oz shot of hard liquor (44 mL). Eating and drinking Eat foods that are high in fiber, such as fruits, vegetables, and whole grains. Eat foods that are high in calcium and vitamin D, such as milk, cheese, yogurt, eggs, liver, fish, and broccoli. Limit foods that are high in fat, such as fried foods and desserts. Limit the amount of red meat and processed meat you eat, such as hot dogs, sausage, yen, and lunch meats. General instructions Keep all follow-up visits as told by your health care provider. This is important. ?This includes having regularly scheduled colonoscopies. ?Talk to your health care provider about when you need a colonoscopy. Contact a health care provider if: You have new or worsening bleeding during a bowel movement. You have new or increased blood in your stool. You have a change in bowel habits. You lose weight for no known reason. Summary Polyps are tissue growths inside the body. Polyps can grow in many places, including the colon. Most colon polyps are noncancerous (benign), but some can become cancerous over time. This condition is diagnosed with a colonoscopy. Treatment for this condition involves removing any polyps that are found. Most polyps can be removed during a colonoscopy. This information is not intended to replace advice given to you by your health care provider. Make sure you discuss any questions you have with your health care provider. Document Released: 05/29/2005 Document Revised: 12/18/2018 Document Reviewed: 12/18/2018 [employer] Patient Education 2020 [email or web address]. 04/23/2022 12:24:53 Colonoscopy, Adult, Care After, Httq-[id number] Colonoscopy, Adult, Care After This sheet gives you information about how to care for yourself after your procedure. Your doctor may also give you more specific instructions. If you have problems or questions, call your doctor. What can I expect after the procedure? After the procedure, it is common to have: A small amount of blood in your poop for 24 hours. Some gas. Mild cramping or bloating in your belly. Follow these instructions at home: General instructions For the first 24 hours after the procedure: ?Do not drive or use machinery. ?Do not sign important documents. ?Do not drink alcohol. ?Do your daily activities more slowly than normal. ?Eat foods that are soft and easy to digest. Take oqgl-wep-xedvxui or prescription medicines only as told by your doctor. To help cramping and bloating: Try walking around. Put heat on your belly (abdomen) as told by your doctor. Use a heat source that your doctor recommends, such as a moist heat pack or a heating pad. ?Put a towel between your skin and the heat source. ?Leave the heat on for 20 30 minutes. ?Remove the heat if your skin turns bright red. This is especially important if you cannot feel pain, heat, or cold. You can get burned. Eating and drinking Drink enough fluid to keep your pee (urine) clear or pale yellow. Return to your normal diet as told by your doctor. Avoid heavy or fried foods that are hard to digest. Avoid drinking alcohol for as long as told by your doctor. Contact a doctor if: You have blood in your poop (stool) 2 3 days after the procedure. Get help right away if: You have more than a small amount of blood in your poop. You see large clumps of tissue (blood clots) in your poop. Your belly is swollen. You feel sick to your stomach (nauseous). You throw up (vomit). You have a fever. You have belly pain that gets worse, and medicine does not help your pain. Summary After the procedure, it is common to have a small amount of blood in your poop. You may also have mild cramping and bloating in your belly. For the first 24 hours after the procedure, do not drive or use machinery, do not sign important documents, and do not drink alcohol. Get help right away if you have a lot of blood in your poop, feel sick to your stomach, have a fever, or have more belly pain. This information is not intended to replace advice given to you by your health care provider. Make sure you discuss any questions you have with your health care provider. Document Released: 10/05/2011 Document Revised: 07/03/2018 Document Reviewed: 05/27/2017 [employer] Patient Education 2020 [employer] Follow Up Care 03/22/2022 08:09:24 With:ALISHA JI MD Address: [address] [place] [address] [place] [phone]- [phone] When: Unknown Comments:Office with contact you with pathology results. [facility] Orders: Lactated Ringers Infusion 1,000 mL, Start: 04/23/22 11:20:00 EDT, Rate: 50 mL/hr, 04/23/22 11:20:00 EDT Communication Order (scheduled) Communication Order (scheduled) Communication Order (scheduled) Discharge Sign Consent She is here for screening colonoscopy. Consent conference was held. All of her questions were addressed and she agrees to proceed. Future Appointments Appointment Date:03/08/2023 01:00:00 PM Scheduled Provider:URIAH STARKS DO Location:[facility] Appointment Type: Wellness Annual Future Scheduled Tests Radiology* MA Mammo Screening Bilateral w/ Hemant 03/07/22 [facility] 08-08-2022 Summary of episode note Discharge Instructions Thank you for allowing [facility] to assist you with your healthcare needs. The following is importantdischarge information regarding your hospital visit. Your Care Team URIAH STARKS DO What to do next Scheduled Follow-Up Appointments Appointment Type When With Where Contact Information Wellness Annual 03/08/2023 01:00 PM EDT URIAH STARKS DO [facility] [address] [address] Follow Up Appointments Follow Up with ALISHA JI MD When Why: Office with contact you with pathology results. Where: [address] [place] [address] [place] [address]- [phone] The Following Activity and Diet Have Been Ordered for You No qualifying data available. No qualifying data available. The Following Equipment Has Been Ordered for You No qualifying data available. The Following Treatments Have Been Ordered for You Discharge Labs No qualifying data available. Discharge Radiology No qualifying data available. Other Therapies No qualifying data available. Post Acute Orders No qualifying data available. Someone Will Contact You Regarding These Home Health Referrals No home referrals have been ordered for you. No one will call you. Allergies Tape (Rash) Medications Please ask your primary doctor or pharmacist before taking any other medication not listed, including over the counter drugs, herbal medications, vitamins and or supplements as they may interact withyour home medications. What How Much When Instructions Last Dose Unchanged albuterol (albuterol 2.5 mg/ 3 mL (0.083%) inhalation solution) 3 Milliliter by inhalation Every 6 hours as needed for for wheezing Unchanged albuterol (Ventolin HFA MDI (90 mcg/ inh) inhalation aerosol) 2 puff(s) by inhalation Every 4 hours as needed for Shortness of breath or wheezing Duration: 30 Days use with spacer chamber. PHARMACY PLEASE DISPENSE SPACER. Okay to substitute alternative brand if needed for insurance. Unchanged triamcinolone topical (triamcinolone 0.1% topical paste) 1 application by mouth Three (3) times a day Please take this list to your next doctor s visit. Bring all medications you take, including over the counter medications, herbals and other supplements with you to your doctor s visit. Patients and families are reminded to discard old lists and to update any records with all medication providers or retail pharmacies. Education Materials Moderate Conscious Sedation, Adult, Care After These instructions provide you with information about caring for yourself after your procedure. Your health care provider may also give you more specific instructions. Your treatment has been plannedaccording to current medical practices, but problems sometimes occur. Call your health care provider if you have any problems or questions after your procedure. What can I expect after the procedure? After your procedure, it is common: To feel sleepy for several hours. To feel clumsy and have poor balance for several hours. To have poor judgment for several hours. To vomit if you eat too soon. Follow these instructions at home: For at least 24 hours after the procedure: Do not: ? Participate in activities where you could fall or become injured. ? Drive. ? Use heavy machinery. ? Drink alcohol. ? Take sleeping pills or medicines that cause drowsiness. ? Make important decisions or sign legal documents. ? Take care of children on your own. Rest. Eating and drinking Follow the diet recommended by your health care provider. If you vomit: ? Drink water, juice, or soup when you can drink without vomiting. ? Make sure you have little or no nausea before eating solid foods. General instructions Have a responsible adult stay with you until you are awake and alert. Take yxnj-btm-uwohqzd and prescription medicines only as told by your health care provider. If you smoke, do not smoke without supervision. Keep all follow-up visits as told by your health care provider. This is important. Contact a health care provider if: You keep feeling nauseous or you keep vomiting. You feel light-headed. You develop a rash. You have a fever. Get help right away if: You have trouble breathing. This information is not intended to replace advice given to you by your health care provider. Make sure you discuss any questions you have with your health care provider. Document Released: 06/23/2014 Document Revised: 08/15/2018 Document Reviewed: 12/22/2016 [employer] Patient Education 2020 [email or web address]. Colon Polyps Polyps are tissue growths inside the body. Polyps can grow in many places, including the large intestine (colon). A polyp may be a round bump or a mushroom-shaped growth. You could have one polyp or several. Most colon polyps are noncancerous (benign). However, some colon polyps can become cancerous over time. Finding and removing the polyps early can help prevent this. What are the causes? The exact cause of colon polyps is not known. What increases the risk? You are more likely to develop this condition if you: Have a family history of colon cancer or colon polyps. Are older than 50 or older than 45 if you are . Have inflammatory bowel disease, such as ulcerative colitis or Crohn's disease. Have certain hereditary conditions, such as: ? Familial adenomatous polyposis. ? Sung syndrome. ? Turcot syndrome. ? Peutz Jeghers syndrome. Are overweight. Smoke cigarettes. Do not get enough exercise. Drink too much alcohol. Eat a diet that is high in fat and red meat and low in fiber. Had childhood cancer that was treated with abdominal radiation. What are the signs or symptoms? Most polyps do not cause symptoms. If you have symptoms, they may include: Blood coming from your rectum when having a bowel movement. Blood in your stool. The stool may look dark red or black. Abdominal pain. A change in bowel habits, such as constipation or diarrhea. How is this diagnosed? This condition is diagnosed with a colonoscopy. This is a procedure in which a lighted, flexible scope is inserted into the anus and then passed into the colon to examine the area. Polyps are sometimes found when a colonoscopy is done as part of routine cancer screening tests. How is this treated? Treatment for this condition involves removing any polyps that are found. Most polyps can be removed during a colonoscopy. Those polyps will then be tested for cancer. Additional treatment may be needed depending on the results of testing. Follow these instructions at home: Lifestyle Maintain a healthy weight, or lose weight if recommended by your health care provider. Exercise every day or as told by your health care provider. Do not use any products that contain nicotine or tobacco, such as cigarettes and e-cigarettes. If you need help quitting, ask your health care provider. If you drink alcohol, limit how much you have: ? 0 1 drink a day for women. ? 0 2 drinks a day for men. Be aware of how much alcohol is in your drink. In the [place] one drink equals one 12 oz bottle of beer (355 mL), one 5 oz glass of wine (148 mL), or one 1 oz shot of hard liquor (44 mL). Eating and drinking Eat foods that are high in fiber, such as fruits, vegetables, and whole grains. Eat foods that are high in calcium and vitamin D, such as milk, cheese, yogurt, eggs, liver, fish, and broccoli. Limit foods that are high in fat, such as fried foods and desserts. Limit the amount of red meat and processed meat you eat, such as hot dogs, sausage, yen, and lunch meats. General instructions Keep all follow-up visits as told by your health care provider. This is important. ? This includes having regularly scheduled colonoscopies. ? Talk to your health care provider about when you need a colonoscopy. Contact a health care provider if: You have new or worsening bleeding during a bowel movement. You have new or increased blood in your stool. You have a change in bowel habits. You lose weight for no known reason. Summary Polyps are tissue growths inside the body. Polyps can grow in many places, including the colon. Most colon polyps are noncancerous (benign), but some can become cancerous over time. This condition is diagnosed with a colonoscopy. Treatment for this condition involves removing any polyps that are found. Most polyps can be removed during a colonoscopy. This information is not intended to replace advice given to you by your health care provider. Make sure you discuss any questions you have with your health care provider. Document Released: 05/29/2005 Document Revised: 12/18/2018 Document Reviewed: 12/18/2018 [employer] Patient Education 2020 [employer] Colonoscopy, Adult, Care After This sheet gives you information about how to care for yourself after your procedure. Your doctor may also give you more specific instructions. If you have problems or questions, call your doctor. What can I expect after the procedure? After the procedure, it is common to have: A small amount of blood in your poop for 24 hours. Some gas. Mild cramping or bloating in your belly. Follow these instructions at home: General instructions For the first 24 hours after the procedure: ? Do not drive or use machinery. ? Do not sign important documents. ? Do not drink alcohol. ? Do your daily activities more slowly than normal. ? Eat foods that are soft and easy to digest. Take dfoy-mfl-xpjdauq or prescription medicines only as told by your doctor. To help cramping and bloating: Try walking around. Put heat on your belly (abdomen) as told by your doctor. Use a heat source that your doctor recommends, such as a moist heat pack or a heating pad. ? Put a towel between your skin and the heat source. ? Leave the heat on for 20 30 minutes. ? Remove the heat if your skin turns bright red. This is especially important if you cannot feel pain, heat, or cold. You can get burned. Eating and drinking Drink enough fluid to keep your pee (urine) clear or pale yellow. Return to your normal diet as told by your doctor. Avoid heavy or fried foods that are hard to digest. Avoid drinking alcohol for as long as told by your doctor. Contact a doctor if: You have blood in your poop (stool) 2 3 days after the procedure. Get help right away if: You have more than a small amount of blood in your poop. You see large clumps of tissue (blood clots) in your poop. Your belly is swollen. You feel sick to your stomach (nauseous). You throw up (vomit). You have a fever. You have belly pain that gets worse, and medicine does not help your pain. Summary After the procedure, it is common to have a small amount of blood in your poop. You may also have mild cramping and bloating in your belly. For the first 24 hours after the procedure, do not drive or use machinery, do not sign important documents, and do not drink alcohol. Get help right away if you have a lot of blood in your poop, feel sick to your stomach, have a fever, or have more belly pain. This information is not intended to replace advice given to you by your health care provider. Make sure you discuss any questions you have with your health care provider. Document Released: 10/05/2011 Document Revised: 07/03/2018 Document Reviewed: 05/27/2017 [employer] Patient Education 2020 [email or web address]. Additional Information VACCINATE! IT SAVES LIVES! Members of the community who have not yet received the COVID-19 vaccine and would like to receive it can visit one of [facility] vaccine clinics. There are many vaccine clinic locations within the [facility]. For locations and available times, please visit [email or web address] It is important to note that some COVID mobile vaccine clinics are held outdoors and may be canceled in rainy or stormy conditions. To learn more about pediatric vaccinations (ages 5-11), we invite you to visit the [employer] [facility] webpage. [email or web address].[email or web address]/[email or web address]-Higfgqqrzmq-Gjzypknxdf-Bvown-[email or web address] stions.htmlTo learn more about the COVID-19 vaccine, we invite you to visit the [employer] website for a list of frequently asked questions. [email or web address]/[email or web address]-[email or web address] _[email or web address] [place] [facility] Patient Portal Access Instructions: Stay connected with your healthcare team and access your personal medical information anytime with the [employer] OneChart Patient Portal.If you would like a full copy of your medical records, please contact the [facility] Medical Records Department, Saturday through Saturday between 8a.m. and 4:30p.m. Please follow the directions below to access the portal: 1.Access the email account you provided upon registration to the hospital.2.Look for an invitation email from [facility].3.Open the email and access the invitation link: Accept Invitation to [employer]4.Fill in the required lott to create your account. Sign into [email or web address] with your username and password that you created in the above steps to stay up to date. You can then view a summary of results, a summary of your visits, and the ability to download your summaries to your computer or send the information securely to a physician. Remember that your healthcare information is confidential, so carefully consider who you will allow to register on the [employer] Patient Portal for access to your information. You can also access the [employer] Patient Portal on the [employer] kj. Simply click on Health Records under [employer] and then click on the [employer] logo. HOW TO SAFELY DISPOSE OF PRESCRIPTION MEDICATIONS Please use one of the following methods to safely dispose of your unused medications. 1.Use a drug disposal kit: the drug disposal pouch allows you to safely discard your old and unuseddrugs. Ask your nurse to give you one when you are discharged.2.Visit a local take-back location: Many local pharmacies and police departments have programs that collect old and unwanted prescriptiondrugs. Call your local pharmacy or go to http://[employer].Crowdcast/1U0Ol0p to find one close to you.3.Make use of household items: Use cat litter or old coffee grounds to dispose medications if other options arenot available. Mix your drugs with these household products, seal them in an airtight container andthrow it into the garbage. Call [facility]: [phone] to be sure your drugs can be disposed of in this way. Some medicines may require a different approach.4.Never flush your medications down the toilet. IF YOU HAVE BEEN PRESCRIBED AN OPIOID FOR PAIN If you have been prescribed an opioid (such as hydrocodone, oxycodone or morphine), it is critical to understand the possible side effects and risks of opioid pain medications. Even when taken as directed, opioids can have several side effects including: Tolerance, meaning you might need to take more of a medication for the same pain relief. Nausea, vomiting and/or constipation. Sleepiness, dizziness, dry mouth, confusion, depression or itching. Physical dependence, meaning you have withdrawal symptoms when a medication is stopped, can develop within a few days. KNOW YOUR RESPONSIBILITIES It is important to know exactly how much and how often to take the opioid pain medications you are prescribed. Never take opioids in higher amounts or more often than prescribed. Do not combine opioids with alcohol or other drugs that cause drowsiness, such as benzodiazepines, also known as benzos, including diazepam and alprazolam, muscle relaxants or sleep aids. Never sell or share prescription opioids. This is illegal. Store opioids in a secure place and out of reach of others (including children, family, friends and visitors). The last page of this document has been signed and retained as a CHART COPY. Signatures Patient Education Materials Moderate Conscious Sedation, Adult, Care After Colon Polyps Colonoscopy, Adult, Care After, Psvv-gd-Ryrs Medication Leaflets My discharge plan and instructions have been reviewed and explained to me and I,TAMMY SALEEMY Rose understand my current condition and have read and understand these discharge instructions. I have received a written copy of the plan/instructions. If I have questions, I am aware that I should contactmy doctor. 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 It is screening colonoscopy in the absence of any other symptoms. Past medical historyfamily history social history reviewed. 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 assistant clinical director Physical Exam Vitals and Measurements T: 36.7 C (Oral) BP: 153/104 SpO2: 97% HT: 175.3 cm WT: 145.5 kg Weight Dosing Weight: 145.5 kg (04/23/22) Alert oriented no apparent distress morbidly obese neck normal lungs clear. Cardiac regular rate and rhythm. No focal neurologic deficits. Trace peripheral edema. Protuberant abdomen soft nontender. Recent and remote memory seem intact. Lab Results No 36 Hour Lab Data Assessment/Plan Orders: Lactated Ringers Infusion 1,000 mL, Start: 04/23/22 11:20:00 EDT, Rate: 50 mL/hr, 04/23/22 11:20:00EDT Communication Order (scheduled) Communication Order (scheduled) Communication Order (scheduled) Discharge Sign Consent She is here for screening colonoscopy. Consent conference was held. All of her questions were addressed and she agrees to proceed. Problem List/Past Medical History Ongoing Achilles tendon mass BMI 45.0-49.9, adult Chronic bronchitis Mouth sore Peripheral edema Systolic ejection murmur Historical No qualifying data Procedure/Surgical History Hysterectomy Tubal ligation Ablation Gallbladder ACL - Anterior cruciate ligament rupture Septoplasty or submucous resection, with or without cartilage scoring, contouring or replacement with graft EGD (esophagogastroduodenoscopy) gastric outlet reduction Medications Home Medications (3) Active albuterol 2.5 mg/3 mL (0.083%) inhalation solution 2.5 mg = 3 mL, PRN, Inhalation, q6h triamcinolone 0.1% topical paste 1 kj, Oral, TID Ventolin HFA MDI (90 mcg/inh) inhalation aerosol 2 puff(s), PRN, Inhalation, q4h Allergies Tape (Rash) Social History Alcohol Frequency: 1-2 times per year., 01/03/2022 Home/Environment Domestic Concerns: None., 04/23/2022 Nutrition/Health Caffeine intake amount: Drinks Tea twice a week., 01/03/2022 Substance Abuse Use: Never., 01/03/2022 Tobacco Nicotine Use: Never (less than 100 in lifetime)., 01/03/2022 Family History Heart attack: Father and Sister. Heart disease: Sister. Immunizations No qualifying data available. Code Status No qualifying data available. Digitally Signed by ALISHA JI MD on 04/23/2022 11:51 AM [facility]08-08-2022 Anesthesiology Consult note Patient: ALMA SALEEM Age: 51 years Sex: Female : 1970 Associated Diagnoses: None Author: SARAH LUCIO Preoperative Information Time of last food or liquid consumption: 04/23/2022 00:00:00 Anesthesia history Patient's history: negative. Family's history: negative. Health Status Allergies: Allergic Reactions (Selected) Severity Not Documented Tape- Rash., Allergies (1) ActiveReaction TapeRash Current medications: (Selected) Inpatient Medications Ordered LR 1,000 mL: 50 mL/hr, Intravenous Prescriptions Prescribed Ventolin HFA MDI (90 mcg/inh) inhalation aerosol: 2 puff(s), Inhalation, q4h, for 30 day(s), use with spacer chamber. PHARMACY PLEASE DISPENSE SPACER. Okay to substitute alternative brand if needed for insurance., PRN: Shortness of breath or wheezing, 1 EA, 0 Refill(s) Documented Medications Documented albuterol 2.5 mg/3 mL (0.083%) inhalation solution: 2.5 mg, 3 mL, Inhalation, q6h, PRN: for wheezing, 60 EA, 0 Refill(s) triamcinolone 0.1% topical paste: 1 kj, Oral, TID, 5 gram(s), 0 Refill(s), Medications (1) Active Scheduled: (0) Continuous: (1) Lactated Ringers 1,000 mL 1,000 mL, Intravenous, 50 mL/hr PRN: (0) Problem list: Medical BMI 45.0-49.9, adult / SNOMED CT 6341633555 / Confirmed Chronic bronchitis / SNOMED CT 818358104 / Confirmed Achilles tendon mass / SNOMED CT 7753919161 / Confirmed Systolic ejection murmur / SNOMED CT 412825131 / Confirmed Mouth sore / SNOMED CT 3694729589 / Confirmed Peripheral edema / SNOMED CT 371568803 / Confirmed, Active Problems (6) Achilles tendon mass BMI 45.0-49.9, adult Chronic bronchitis Mouth sore Peripheral edema Systolic ejection murmur Histories Past Medical History: No active or resolved past medical history items have been selected or recorded., BMI between 40-49, occasional bronchitis uses inhaler prn Family History: Heart disease Sister Heart attack Sister Father Procedure history: Septoplasty or submucous resection, with or without cartilage scoring, contouring or replacement with graft (88856). Ablation (745426525). Hysterectomy (745626933). Tubal ligation (297373177). Gallbladder (04119270). ACL - Anterior cruciate ligament rupture (315401957). EGD (esophagogastroduodenoscopy) gastric outlet reduction (5807811875). Social History Social & Psychosocial Habits Alcohol 01/03/2022 Frequency: 1-2 times per year Substance Abuse 01/03/2022 Use: Never Tobacco 01/03/2022 Tobacco Use: Never (less than 100 in l Home/Environment 04/23/2022 Domestic Concerns None Nutrition/Health 01/03/2022 Caffeine intake amount: Drinks Tea twice a week . Physical Examination Vital Signs 04/23/2022 10:39 EDT Temperature Oral 36.7 DegC Systolic Blood Pressure NBP 153 mmHg HI Diastolic Blood Pressure NBP 104 mmHg >HHI Vital Signs(last 24 hrs) Last Charted Temp Oral36.7 DegC (APR 23 10:39) SBPH 153mmHg (APR 23 10:39) DBPC 104mmHg (APR 23 10:39) Measurements from flowsheet : Measurements 04/23/2022 10:39 EDT Height 175.3 cm Admission Weight 145.5 kg Weight Method Stated [place] Body Weight 66.24 kg Admission Body Mass Index 47.35 m2 Pain assessment: Pain Assessment 04/23/2022 10:39 EDT Primary Pain Intensity 0 Pain Scale Type 0-10 Pain scale . General: Alert and oriented. Airway: Normal temporomandibular joint mobility. Mallampati classification: II (soft palate, fauces, uvula visible). Head: Normocephalic. Dentition Evaluation: Intact. Neck: Supple. Respiratory: Lungs are clear to auscultation. Cardiovascular: Normal rate. Heart Sounds: Normal. Gastrointestinal: Soft. Musculoskeletal Normal range of motion. Integumentary: Intact. Neurologic: Alert. Review / Management Results review: No qualifying data available , Lab results 04/23/2022 11:27 EDT Lactated Ringers Injection Begin Bag 1,000 mL mL 04/23/2022 10:39 EDT Designated Person #1 We May Share HOME [place] [phone] Designated Person #1 Relationship Spouse Privacy Restrictions Requested None Height 175.3 cm Admission Weight 145.5 kg Weight Method Stated [place] Body Weight 66.24 kg Admission Body Mass Index 47.35 m2 Temperature Oral 36.7 DegC Systolic Blood Pressure NBP 153 mmHg HI Diastolic Blood Pressure NBP 104 mmHg >HHI Primary Pain Intensity 0 Pain Scale Type 0-10 Pain scale Nail Bed Color Bruce Capillary Refill < 2 seconds Oxygen Therapy Room air Oxygen Saturation 97 % Abdomen Description Soft, Rounded Bowel Sounds All Quadrants Present Urinary Elimination Voiding, no difficulties Status No, per patient Skin Temperature Warm Skin Description Bruce, Normal for ethnicity, Dry Skin Moisture General Dry Antecubital Right 04/23/2022 22 gauge Peripheral IV Activity: Insert new site Peripheral IV Site Condition: No complications Peripheral IV Number of Attempts: 1 Extremity Movement Equal Characteristics of Speech Clear Level of Consciousness Alert Strength All Extremities Strong Sensation All Extremities Intact Affect/Behavior Appropriate Orientation Oriented x 4 Sensory Deficits None Sleep Apnea Snore Yes Sleep Apnea Tired No Sleep Apnea Obstruction No Sleep Apnea Pressure No Sleep Apnea BMI No Sleep Apnea Age Yes Sleep Apnea Neck No Sleep Apnea Gender No Sleep Apnea Score 2 High Risk for Sleep Apnea No Advanced Directives No - refuses information Infectious Disease Symptoms Patient states no symptoms Infectious Disease Recent Exposure No Alcohol and Drug Use No Employee of Institutional Living No Health Care Employee No History of Exposure to TB No History of Positive Chest X-Ray for TB No History of Positive TB Skin Test No Homeless No Known Immunosuppression No Recent Immigrant No Resident of Institutional Living No Bloody Sputum No Fatigue No Fever No Loss of Appetite No Night Sweats No Persistent Cough > 3 Weeks No Weight Loss No Allergies Yes Product Development Consultant On Yes Consent Form Signed Yes Patient Dressed In Hospital gown History & Physical Update On Chart Yes History & Physical On Chart Yes Obstructive Sleep Apnea Assess Completed Yes Arrival Mode Ambulatory Position Supine Glasses Yes Dentures N/A Accompanied By On Arrival Family GI Prep Completed Yes GI Prep Results Large amount Orientation Assessment Oriented x 4 Safety Brochure Information Reviewed Unable to complete Tuyet Kruger Video Viewed No Individuals Taught Patient, Spouse Learning Readiness Willing to learn Barriers to Learning None evident Teaching Method Explanation Preferred Written Language Sammarinese Preferred Spoken Language Sammarinese Pre Procedure/Surgery Education Appropriate expectations Information Given by Patient Patient's Current Physicians Patient's Current Physicians Belongings At Bedside Glasses, Shirt, Shoes, Shorts Discharge To, Anticipated Home with family care Activity Status ADL Awake Standard Safety ID band on, Allergy Band on, Call device within reach, Bed in low position, Wheels locked Prev Test Positive/Diagnosis w/COVID-19 No Current Quarantine/Isolated any Illness No Any Contact with Sick Animals/Birds No Traveled Anywhere in Last 30 Days No Allergy Band on and Verified Yes Patient ID Band on and Verified Yes Implants Verified Yes Pacemaker/AICD Verified Yes Last Fluid Intake 04/23/2022 5:00 Last Food Intake 04/21/2022 13:00 Last Void 04/23/2022 10:47 Lost Weight Unintentionally Recently No Eat Poorly Due to Decreased Appetite No Total MST Score 0 No Personal Devices, Patient Valuables None Anesthesia/Transfusions Prior anesthesia Admission Note-Nursing Same Day Patient History . Assessment and Plan [place] [employer] (ASA) physical status classification: Class III. Anesthetic Preoperative Plan Premedication: None. Anesthetic technique: MAC. Induction: intravenously. Postoperative pain management: Per surgeon. Risks discussed: nausea, vomiting, headache, sore throat, dental injury, hypotension, allergic reaction, serious complications. Informed consent: signed by patient. Digitally Signed by SARAH LUCIO on 04/23/2022 11:35 AM [facility]03-29-2022 NoteHNO ID: [id number] Author: Zuri Taylor PA-C Service: ? Author Type: Physician Family Dentist Type: Progress Notes Filed: 12/12/2021 6:11 PM Note Text: This note was created using Veohriter. Subjective Alma Saleem is a 51 year old female. HPI Patient presents with a lump on her tongue for 2 weeks. She states it isn't painful unless something hits it when she is eating. She does not remember burning the tongue. She did not bite the tongue. She denies hx of smoking or chewing tobacco. Review of Systems HENT: Tongue lesion Respiratory: Negative. Cardiovascular: Negative. Gastrointestinal: Negative. Genitourinary: Negative. Musculoskeletal: Negative. All other systems reviewed and are negative. PAST MEDICAL HISTORY Diagnosis Date - NEGATIVE MEDICAL HISTORY Current Outpatient Medications Medication Sig Dispense Refill - albuterol HFA (PROVENTIL HFA, VENTOLIN HFA) 90 mcg/actuation inhaler Inhale 2 Puffs as instructed every 6 hours as needed for wheezing/shortness of breath. 1 Inhaler 1 - albuterol (PROVENTIL) 2.5 mg /3 mL (0.083 %) nebulizer solution Use 3 mL via nebulizer every 4 hours as needed for wheezing/shortness of breath. Use over 5-15minutes. 1 Vial 1 - guaiFENesin (MUCINEX) 600 mg 12 hr tablet Take 2 tablets by mouth twice daily. 30 tablet 0 - benzonatate (TESSALON PERLES) 100 mg capsule Take 1 capsule by mouth three times daily as needed. 40 capsule 0 - triamcinolone (KENALOG IN ORABASE) 0.1 % paste 1 application by DENTAL route twice daily for 7 days. 5 g 0 - ProAir RespiClick 90 mcg/actuation breath activated (albuterol sulfate) Inhale 2 Puffs as instructed every 4 hours as needed. 1 Inhaler 0 - predniSONE (DELTASONE) 20 mg tablet Prednisone 40 mg (2-20mg tablets) po QD for 5 days (Patient not taking: Reported on 12/12/2021 ) 10 tablet 0 - albuterol (PROVENTIL) 5 mg/mL nebu Inhale 0.5 mL as instructed one time only for 1 dose. 1 DOSE NOW - BACK OFFICE. PLACE 0.5 ML PER DROPPER AND 2.5 ML OF NORMAL SALINE INTO RESERVOIR. (Patient not taking: Reported on 10/01/2019 ) 1 mL 0 - albuterol HFA (VENTOLIN HFA) 90 mcg/actuation inhaler Inhale 2 Puffs as instructed every 4 hours as needed for Wheezing/Shortness of Breath. (Patient not taking: Reported on 10/01/2019 ) 1 Inhaler 0 No current facility-administered medications for this visit. PAST SURGICAL HISTORY Procedure Laterality Date - LIG/TRNSXJ FLP TUBE ABDL/VAG APPR UNI/BI Tubal ligation - SEPTOPLASTY/SUBMUCOUS RESECJ W/WO CARTILAGE GRF Septoplasty FAMILY HISTORY Problem Relation Age of Onset - other (tumor [Other]) Sister tumor removed from left ventricle - None Mother - None Father - None Sister - None Daughter - None Son Social History Tobacco Use - Smoking status: Never Smoker - Smokeless tobacco: Never Used Substance Use Topics - Alcohol use: Yes Comment: in past - Drug use: No Objective BP 128/82 Pulse 72 Temp 36.7 ?C (98 ?F) Resp 16 Wt (!) 149.1 kg (328 lb 12.8 oz) LMP 02/11/2011 SpO2 96% Physical Exam Vitals reviewed. Constitutional: Appearance: Normal appearance. HENT: Head: Normocephalic and atraumatic. Mouth/Throat: Comments: Patient has an enlarged inflamed papilla on the mid right tongue. No surrounding erythema. Mild ttp. No other lesions in the mouth. Neurological: Mental Status: She is alert. Assessment and Plan ASSESSMENT/PLAN: 1. Tongue lesion - ICD9: 529.8, ICD10: K14.8 Give oral triamcinolone and recommended follow up with oral surgery. Dr. Mancera phone number given. [facility]02-06-2022 NoteHNO ID: [id number] Author: Tim Quesada PA-C Service: ? Author Type: Physician Family Dentist Type: Progress Notes Filed: 10/22/2021 10:30 AM Note Text: This note was created using Veohriter. Subjective Alma Saleem is a 51 year old female. Ms. Saleem is a 51 y/o female who presents today with CC of wheezing, cough, and SOB starting 2 days ago. She reports a hx of bronchitis ~2 years ago. She denies any fevers/chills, loss of taste/smell, n/v, fatigue. She has not tried any OTC remedies. She reports being prescribed albuteral and steroid in the past which helped. She denies any other issues today. Review of Systems Respiratory: Positive for cough and chest tightness. All other systems reviewed and are negative. Objective LMP 02/11/2011 Physical Exam Constitutional: Appearance: Normal appearance. HENT: Right Ear: Tympanic membrane normal. Left Ear: Tympanic membrane normal. Mouth/Throat: Mouth: Mucous membranes are moist. Eyes: Conjunctiva/sclera: Conjunctivae normal. Pupils: Pupils are equal, round, and reactive to light. Pulmonary: Effort: Pulmonary effort is normal. No respiratory distress. Breath sounds: Normal breath sounds. No stridor. No wheezing, rhonchi or rales. Chest: Chest wall: No tenderness. Neurological: Mental Status: She is alert. Assessment and Plan ASSESSMENT/PLAN: 1. URI, acute - ICD9: 465.9, ICD10: J06.9 (primary diagnosis) - Discussed viral etiology and rationale for treatment. - ALBUTEROL SULFATE 2.5 MG/3 ML (0.083 %) SOLUTION FOR NEBULIZATION - PREDNISONE 20 MG TABLET - PROAIR RESPICLICK 90 MCG/ACTUATION BREATH ACTIVATED [facility] Future Appointments Appointment Date:03/07/2022 02:00:00 PM Scheduled Provider:URIAH STARKS DO Location:[facility] Appointment Type:PC Wellness Annual [facility] Evaluation + Plan note Future Appointments Appointment Date:06/07/2023 01:30:00 PM Scheduled Provider:URIAH STARKS DO Location:[facility] Appointment Type:PC OV [facility] Evaluation + Plan note Future Appointments Appointment Date:07/24/2023 03:30:00 PM Scheduled Provider:URIAH STARKS DO Location:[facility] Appointment Type:PC OV [facility] Evaluation + Plan note Future Appointments Appointment Date:11/08/2023 03:30:00 PM Scheduled Provider:URIAH STARKS DO Location:[facility] Appointment Type:PC OV Diagnostic Tests Pending * Cortisol, Urinary Free 09/11/23 [facility] Evaluation + Plan note Future Appointments Appointment Date:11/07/2023 08:30:00 AM Scheduled Provider:STEVIE ARIZMENDI MD Location:[facility] Appointment Type:ENDO OV Appointment Date:11/08/2023 03:30:00 PM Scheduled Provider:URIAH STARKS DO Location:[facility] Appointment Type:PC OV Diagnostic Tests Pending * Salivary Cortisol,MS 10/26/23 [facility] Evaluation + Plan note Future Appointments Appointment Date:11/07/2023 08:30:00 AM Scheduled Provider:STEVIE ARIZMENDI MD Location:[facility] Appointment Type:ENDO OV Appointment Date:11/08/2023 03:30:00 PM Scheduled Provider:URIAH STAKRS DO Location:[facility] Appointment Type:PC OV [facility] Evaluation note* Diagnosis Pharyngitis, unspecified etiology- Primary documented in this encounter [facility] course Narrative No data available for this section [facility] Hospital Discharge instructions No data available for this section [facility] Progress note No data available for this section [facility] Summary Purpose Family History No Family History Records FoundNo Family History Records Found No data available for this section No data available for this section No data available for this section No data available for this section No data available for this section No Family History Records Found Advance Directives No Advanced Directives Records FoundNo Advanced Directives Records FoundNo Advanced Directives Records Found Additional Source Comments Care Team (unrecognized sect ion and content) Care Team (unrecognized sect ion and content) Care Team Personnel Name: URIAH STARKS DO Position: P4 Physician - Primary Care Med Service: Active Provider Member Role: Primary Care Physician Address: Address: [address] [place] [address] [place] [address]- [place] Care Team Related Persons Name: HARPER JOAQUÍN Elisha Address: [address] [id number] Address: [address] [phone] Source Comments (unrecognize d section and content) In the event this informatio n is protected by the Federal Confidentiality of Alcohol and Drug Abuse Patient Records regulations: The Federal rules restrict any use of the information to criminally investigate or prosecute any alcohol or drug abuse patient.[facility] Reason for Visit (unrecogniz ed section and content) INFORMATION SOURCE (unrecogn ized section and content) DATE CREATED AUTHOR AUTHOR'S ORGANIZ ATION 04/01/2023 [facility] ([place]) DATE CREATED AUTHOR AUTHOR'S ORGANIZ ATION 11/03/2023 [facility] FOR RECORDS PERTAINING TO PATIENTS WHO ARE OR HAVE BEEN ENROLLED IN A CHEMICAL DEPENDENCY/SUBSTANCEABUSE PROGRAM, SOME INFORMATION MAY BE OMITTED. This clinical summary was aggregated from multiple sources. Caution should be exercised in using it in the provision of clinical care. This summary normalizes information from multiple sources, and as a consequence, information in this document may materially change the coding, format and clinical context of patient data. In addition, data may be omitted in some cases. CLINICAL DECISIONS SHOULD BE BASED ON THE PRIMARY CLINICAL RECORDS. [employer] [facility]. provides no warranty or guarantee of the accuracy or completeness of information in this document.
[2023-11-11 10:32] LABS: Anion Gap 6 (5-15); BUN 14 mg/dL (7-18); BUN/Creat Ratio 20.3 RATIO (10-20); Calcium,Total 9.3 mg/dL (8.5-10.1); Chloride 109 mmol/L (98-107); Creatinine, Serum 0.69 mg/dL (0.55-1.02); EST Glomerular Filtration Rate 95 mL/min (>60); Est Glom Filt Rate - Afr Amer 115 mL/min (>60); Follicle Stimulating Hormone 37.9 mIU/mL; Glucose 90 mg/dL (74-106); Luteinizing Hormone 21.3 mIU/mL; Potassium 3.8 mmol/L (3.5-5.1); Prolactin 5.4 ng/mL; Sodium Level 141 mmol/L (136-145); Thyroid Stim Hormone (TSH) 1.97 uIU/mL (0.358-3.74)
[2023-11-11 10:46] LABS: 24HR. Urine Creatinine 1.67 g/24 HR (0.70-1.90)
[2023-11-15 14:10] LABS: 17-Hydroxyprogesterone 14 ng/dL (.)
[2023-11-16 16:10] LABS: Adrenocorticotropic Hormone 17.1 pg/mL (7.2-63.3); Estrogen, Total, Serum 57 pg/mL (.); Immunoglobulin A 179 mg/dL (87-352); Immunoglobulin E 33 IU/mL (6-495); Immunoglobulin G 1016 mg/dL (586-1602); Immunoglobulin M 151 mg/dL (26-217)
[2023-11-28 01:06] LABS: Aldosterone, 24Ur < 3.38 ug/24 hr (0.00-19.00); Aldosterone, Ur < 2.50 ug/L (Not Estab.); Cortisol, Free 24Ur 20 ug/24 hr (6-42); Cortisol, Urinary Free 15 ug/L (Undefined); Metanephrine, Ur 71 ug/L (Undefined); Metanephrines, 24Ur 96 ug/24 hr (36-209); Normetanephrines, 24Ur 319 ug/24 hr (131-612); Normetanephrines, Ur 236 ug/L (Undefined)
== END | disposition home or self-care (01) ==
PROVIDERS: PCP Student in an Organized Health Care Education/Training Program; Visit Provider Internal Medicine Endocrinology, Diabetes & Metabolism
DX: I10 Essential (primary) hypertension (principal); E80.6 Other disorders of bilirubin metabolism; E65 Localized adiposity
CPT/HCPCS: 36415; 80048; 81050; 82024; 82088; 82530; 82533; 82570; 82672; 82784; 82785; 83001; 83002; 83498; 83835; 84146; 84439; 84443

== ENCOUNTER → 2023-11-15 | Outpatient (CLI) | payer OTHER, SELFPAY ==
--- OUTSIDE RECORDS SUMMARY | 2023-11-15 08:01 | XMS RPT_ITS | CCD ---
Author Name Unknown Address [address] [place] [address] Organization [facility] Care Team Providers Care Aircraft Design Engineer Name Role Phone RAUDEL PAYTON, DR KRUSE Primary Care Physician [phone] Gadiel Aguilar DO Primary Care Provider Jocelyn GADIEL Burton Primary Care Unavailable GADIEL AGUILAR Primary Care Unavailable GADIEL AGUILAR Primary Care Unavailable RAUDEL PAYTON, DR KRUSE Attending Unavailable ROMAR DO, DR [...] Allergy Type Date of Onset Reaction(s) Facility (9 sources) Adhesive Tape Allergy to substance Eruption of skin (disorder) [facility] (2 sources) Adhesive Tape-Silicones; Translations: [ADHESIVE TAPE-SILICONES] Drug Intolerance 2 Other: See Comments [facility] (6 sources) Film dressing Allergy to substance blisters [facility] Medications Current Medications Medication Drug Class(es) Dates [...] sites, # 1 EA, 0 Refill(s), Pharmacy: [facility]/pharmacy #[id number], 176.9, cm, 06/07/23 13:22:00 EDT, Height, kg, 06/07/23 13:22:00 EDT, Dosing Weight Start Date: 06/07/23 Stop Date: 07/07/23 Status: Ordered acetaminophen 325 mg / HYDROcodone bitartrate 5 mg oral tablet (1 source) Opioid Agonist Start: 05-22-2020 End: 05-25-2020 take 1 tablet by mouth every four hours as needed for pain [place] 325- 5 mg oral tablet Dose = [...] Date Documented Date Episodic/Chronic Biliary tract disease (12 sources) Biliary calculus; Translations: [Cholelithiasis with obstruction] 04-17-2018 Episodic Chronic obstructive pulmonary disease and bronchiectasis (9 sources) Chronic bronchitis 01-03-2022 Chronic Diseases of mouth; excluding dental (9 sources) Oral lesion 01-03-2022 Episodic Esophageal disorders (6 sources) Gastroesophageal reflux disease 04-17-2018 Chronic Essential hypertension (5 sources) Essential hypertension; Translations: [Essential (primary) hypertension] Onset: 06-13-2023 Chronic Headache; including migraine (6 sources) Migraine 04-30-2018 Chronic Headache; including migraine (6 sources) Headache 04-17-2018 Episodic Past or Other [...] 08:46-0400 Blood Pressure Location HIMA SEN MD [facility] 06-13-2023 08:46-0400 Blood Pressure Method HIMA SEN MD [facility] 06-13-2023 08:46-0400 Body temperature 97.52 [degF] HIMA SEN MD [facility] 06-13-2023 08:46-0400 Body weight 153.1 kg HIMA SEN MD [facility] 06-13-2023 08:46-0400 Diastolic Blood Pressure Non-Invasive 95 1 HIMA SEN MD [facility] 06-13-2023 08:46-0400 Heart rate 65 /min HIMA SEN MD [facility] 06-13-2023 08:46-0400 Respiratory rate 18 /min HIMA SEN MD [facility] 06-13-2023 08:46-0400 Systolic Blood Pressure Non-Invasive 173 1 HIMA SEN MD [facility] 07-10-2022 12:59-0400 Body temperature 98.01 [degF] Radha Peralta SYSTEMS OPERATOR.STRUCTURAL ENGINEERING PROJECT MANAGER Work Phone: [facility] 07-10-2022 12:59-0400 Body weight 153.32 kg Radha Peralta SYSTEMS OPERATOR.STRUCTURAL ENGINEERING PROJECT MANAGER Work Phone: [facility] 07-10-2022 12:59-0400 Diastolic blood pressure 86 mm[Hg] Radha Peralta SYSTEMS OPERATOR.STRUCTURAL ENGINEERING PROJECT MANAGER Work Phone: [facility] 07-10-2022 12:59-0400 Heart rate 82 /min Radha Peralta SYSTEMS OPERATOR.STRUCTURAL ENGINEERING PROJECT MANAGER Work Phone: [facility] 07-10-2022 12:59-0400 Respiratory rate 16 /min Radha Peralta SYSTEMS OPERATOR.STRUCTURAL ENGINEERING PROJECT MANAGER Work Phone: [facility] 07-10-2022 12:59-0400 SaO2% (BldA) [Mass fraction] 96 % Radha Peralta SYSTEMS OPERATOR.STRUCTURAL ENGINEERING PROJECT MANAGER Work Phone: [facility] 07-10-2022 12:59-0400 Systolic blood pressure 142 mm[Hg] Radha Peralta SYSTEMS OPERATOR.STRUCTURAL ENGINEERING PROJECT MANAGER Work Phone: [facility] 04-23-2022 12:37-0400 Diastolic Blood Pressure NBP [address] ALISHA JI MD [facility] 04-23-2022 12:37-0400 Heart rate 71 /min DR ALISHA JI MD [facility] 04-23-2022 12:37-0400 Respiratory rate 12 /min DR ALISHA JI MD [facility] 04-23-2022 12:37-0400 Systolic Blood Pressure NBP [address] ALISHA JI MD [facility] 04-23-2022 12:28-0400 Diastolic Blood Pressure NBP [address] ALISHA JI MD [facility] 04-23-2022 12:28-0400 Systolic Blood Pressure NBP [address] ALISHA JI MD [facility] 04-23-2022 12:21-0400 Diastolic Blood Pressure NBP [address] ALISHA JI MD [facility] 04-23-2022 12:21-0400 Respiratory rate 15 /min DR ALISHA JI MD [facility] 04-23-2022 12:21-0400 Systolic Blood Pressure NBP [address] ALISHA JI MD [facility] 04-23-2022 12:20-0400 Heart rate 71 /min DR ALISHA JI MD [facility] 04-23-2022 12:20-0400 Respiratory rate 20 /min DR ALISHA JI MD [facility] 04-23-2022 12:10-0400 Heart rate 77 /min DR ALISHA JI MD [facility] 04-23-2022 10:39-0400 Body height 175.[address] ALISHA JI MD [facility] 04-23-2022 10:39-0400 Body temperature 98.06 [degF] DR ALISHA JI MD [facility] 04-23-2022 10:390408 Body weight 145.[address] ALISHA JI MD [facility] Encounters Encounter Date Encounter Type Care Provider Facility Start: 11-08-2023 End: 11-12-[address] URIAH STARKS DO [facility] Start: 11-02-2023 End: 11-03-2023 ambulatory STEVIE ARIZMENDI MD Facility:B Start: 11-02-2023 End: 11-02-2023 Patient encounter procedure STEVIE ARIZMENDI MD [facility] Start: 10-30-2023 End: 10-31-2023 ambulatory STEVIE ARIZMENDI MD Facility:[facility] Start: 10-26-2023 End: 10-27-2023 ambulatory STEVIE ARIZMENDI MD Facility:[facility] Start: 10-26-2023 End: 10-26-2023 Patient encounter procedure STEVIE ARIZMENDI MD [facility] Start: 09-11-2023 End: 09-16-[address] URIAH STARKS DO Facility:[facility] Start: 09-11-2023 End: 09-15-[address] URIAH STARKS DO [facility] Start: 09-06-2023 End: 09-07-[address] URIAH STARKS DO Facility:[facility] Start: 06-13-2023 End: 06-13-2023 Emergency department patient visit HIMA SEN MD Facility:[facility] Start: 06-13-2023 End: 06-13-2023 Emergency department patient visit HIMA SEN MD [facility] Start: 05-15-2023 End: 05-16-[address] URIAH STARKS DO Facility:[facility] Start: 05-15-2023 End: 05-15-[address] URIAH STARKS DO [facility] Start: 04-01-2023 End: 04-02-[address] URIAH STARKS DO Facility:[facility] Start: 03-14-[address] URIAH STARKS DO Facili ty:B Start: 07-10-2022 End: 07-10-2022 ambulatory GADIEL AGUILAR Facility:[facility] Start: 07-10-2022 End: 07-10-2022 Patient encounter procedure Radha Peralta APRN.STRUCTURAL ENGINEERING PROJECT MANAGER Work Phone: [facility] Care Procedures Date Procedure Procedure Detail Performing Clinician Start: 07-10-2022 STREP A MOLECULAR (POC) Radha Peralta APRN.STRUCTURAL ENGINEERING PROJECT MANAGER Work Phone: Start: 05-05-[address] URIAH STARKS DO Start: 04-18-[address] URIAH STARKS DO Abdominal hysterectomy DR CURTIS STARKS DO 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) DR URIAH STARKS DO Plan of Treatment Date Care Activity Detail Author Start: 05-17-2022 Influenza vaccination INFLUENZA (#1) [facility] Start: 09-16-2021 DEPRESSION ASSESSMENT DEPRESSION ASS ESSMENT [facility] Start: 2021 SHINGRIX VACCINE (1 of 2) SHINGRIX V ACCINE (1 of 2) [facility] Start: 11-01-2017 DIABETES SCREEN DIABETES SCREEN [facility] Start: 2016 COLOGUARD (FIT-DNA) COLOGUARD (FIT-D NA) [facility] Start: 2016 Colonoscopy COLONOSCOPY [facility] Start: 2016 COLORECTAL CANCER SCREENING COLORECTAL CANCER SCREENING [facility] Start: [address] COLONOGRAPHY [facility] Start: 2016 FECAL OCCULT BLOOD FECAL OCCULT BLOO D [facility] Start: 2016 LIPID SCREEN LIPID SCREEN [facility] Start: 2016 SIGMOIDOSCOPY SIGMOIDOSCOPY [facility] Start: 2011 Mammography MAMMOGRAM [facility] Start: 2001 HPV TESTING HPV TESTING [facility] Start: 1992 PAP TESTING PAP TESTING [facility] Start: 1990 Urine microalbumin profile DTAP,TDAP ,TD (1 - Tdap) [facility] Start: 1989 HEPATITIS C SCREENING HEPATITIS C SC REENING [facility] Start: 1989 HIV SCREENING HIV SCREENING [facility] Start: 01-14-1972 COVID-19 VACCINE (#1) COVID-19 VACCI NE (#1) [facility] Start: 1971 HEPATITIS B (1 of 3 - 3-dose series) HEPATITIS B (1 of 3 - 3-dose series) [facility] Immunizations Immunization Date Immunization Notes Care Provider Fa cility 03-08-2023 tetanus toxoid, redu howard diphtheria toxoid, and acellular pertussis vaccine, adsorbed; Translations: [Boostrix (Tdap)] DR URIAH STARKS DO [place] Payers Date Payer Category Payer Unknown 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 [id number] 2019-Present [phone] [address] [place] [address] PPO [id number] 2019 Unknown [id number] 1971 Unknown [id number] 1971 Unknown [id number] 1971 Unknown [id number] 1971 Unknown [id number] [id number] 1971 Unknown [id number] 1971 Unknown [id number] [id number] 1971 Unknown [id number] [id number] 1971 Unknown [id number] [id number] 1971 Unknown [id number] [id number] 1971 Unknown [id number] [id number] 1971 Unknown [id number] 1971 Unknown [id number] Social History Date Type Detail Facility Start: 01-03-2022 End: 09-06-2023 Tobacco smoking status Never smoked tobacco (finding) [facility] At [facility] Start: 07-10-2022 Tobacco use and exposure Smokeless tobacco non-user [facility] Work Phone: Start: 07-10-2022 Alcohol intake Current drinke r of alcohol (finding) [facility] Start: 1970 Sex Assigned At Not on file [facility] Sex Assigned At Sex [facility] Functional Status Date Assessment Result Facility 06-13-2023 Functional Status ID band on, Call device within reach, Bed in low position, Wheels locked, Upper/Half-Length side-rails up [facility] 04-23-2022 Functional Status Independent [facility] 04-23-2022 Functional Status Awake [facility] Mental Status Date Assessment Result Facility 06-13-2023 Mental Status Oriented x 4 [facility] 04-23-2022 Mental Status Orientation [facility]ed x [facility] 04-23-2022 Mental Status [facility] Clinical Notes 10-22-2021 to 06-13-2023 Patient InstructionsRadha Peralta APRN.STRUCTURAL ENGINEERING PROJECT MANAGER - 07/10/2022 1:10 PM EDT Note Date [...] only small amounts of salt when cooking. [employer] food labels to track how much salt [...] that have heart stimulants. This includes many dayv-fna-teylvft cold and sinus decongestant pills and sprays, as well as diet pills. Check the warnings about high blood pressure on the label. Before purchasing any dzai-gpv-ubjkbkq medicines or supplements, always ask the pharmacist [...] one of these at most pharmacies. The [place] Heart Association recommends the following guidelines for [...] face You have problems speaking or seeing 5114-7941 [employer]. [address] [place] [address]. All rights reserved. This information is not intended as a substitute for professional medical care. Always follow your healthcare professional's instructions. Follow Up Care 06/13/2023 08:36:45 With:URIAH STARKS DO Address: [address] [place] [id number] [phone] When:2-4 days [facility] 06-13-2023 Note Discharge Instructions Thank you for allowing [place] to assist you with your healthcare needs. The following is important discharge information regarding your hospital visit. Diagnosis from Today's Visit High blood pressure Hypertension What to Do Next Instructions from Your Care Team No qualifying data available. Post Acute Orders No qualifying data available. You Need to Schedule the Following Appointments Follow Up with URIAH STARKS DO When Within 2-4 days Where: [address] [place] [id number] [phone] Allergies Tape (Rash) Tegaderm (blisters) Medications Please [...] or retail pharmacies. Medication Leaflets hydrochlorothiazide (GUZMAN comer) What is the most important information I [...] may report side effects to FDA at 1-648-GAG-5820. What other drugs will affect hydrochlorothiazide? Taking [...] drugs may affect hydrochlorothiazide, including prescription and pfvc-vjx-mszhqvo medicines, vitamins, and herbal products. Not all [...] to ensure that the information provided by [employer]. ('[employer]') is accurate, up-to-date, and complete, but no guarantee is made to that effect. Drug information contained herein may be time sensitive. [employer] information has been compiled for use by healthcare practitioners and consumers in the [place] and therefore [employer] does not warrant that uses outside of the [place] are appropriate, unless specifically indicated otherwise. [employer]irys drug information does not endorse drugs, diagnose patients or recommend therapy. [employer]irys drug information is an informational resource designed [...] effective or appropriate for any given patient. [employer] does not assume any responsibility for any aspect of healthcare administered with the aid of information [employer] provides. The information contained herein is not intended to cover all possible uses, directions, precautions, warnings, drug interactions, allergic reactions, or adverse effects. If you have questions about the drugs you are taking, check with your doctor, nurse or pharmacist. Copyright 6746-8764 [facility] [employer]. Version: 13.. Revision Date: 10/25/2020. Education Materials [...] only small amounts of salt when cooking. [facility] food labels to track how much salt [...] that have heart stimulants. This includes many ywai-neh-iwgefwy cold and sinus decongestant pills and sprays, as well as diet pills. Check the warnings about high blood pressure on the label. Before purchasing any ujsn-ouh-mvuejfq medicines or supplements, always ask the pharmacist [...] one of these at most pharmacies. The [place] Heart Association recommends the following guidelines for [...] face You have problems speaking or seeing 4227-9940 [employer]. [address] [place] [address]. All rights reserved. This information is not intended as a substitute for professional medical care. Always follow your healthcare professional's instructions. Additional Information VACCINATE! IT SAVES LIVES! Members of the community who have not yet received the COVID-19 vaccine and would like to receive it can visit one of [facility] vaccine clinics. There are many vaccine clinic locations within the [facility]. For locations and available times, please visit [email or web address] [email or web address] It is important to note that some COVID mobile vaccine clinics are held outdoors and may be canceled in rainy or stormy conditions. To learn more about pediatric vaccinations (ages 5-11), we invite you to visit the [facility] webpage. https://www.[facility].org/pag es/0453-Msvwn-Asxudsfroja-Frequent mh-Oycmj-Wudozxjyt.html To learn more about the COVID-19 vaccine, we invite you to visit the CDC website for a list of frequently asked questions. https://www.cdc.gov/coronavirus/-ncov/vaccines/faq.html [employer] Patient Portal Access Instructions: Stay connected with your healthcare team and access your personal medical information anytime with the [facility] [facility] Patient Portal. If you would like a full copy of your medical records please contact the [facility] Medical Records Department Saturday through Saturday between 8a.m. and 4:30p.m. Please follow the directions below to access the portal: 1.Access the email account you provided upon registration to the [facility].2.Look for an invitation email from [facility].3.Open the email and access the invitation link: Accept Invitation to [facility]4.Fill in the required lott to create your account. Sign into [email or web address] with your username and password that you [...] you will allow to register on the [facility] Patient Portal for access to your information. You can also access the [facility] Patient Portal on the [employer]. Simply click on Health Records under Health Data and then click on the [employer] logo. HOW TO SAFELY DISPOSE OF PRESCRIPTION [...] Call your local pharmacy or go to http://bit.[employer]/1U1Zk0y to find one close to you.3.Make use of household items: Use cat litter or old coffee grounds to dispose medications if other options are not available. Mix your drugs with these household products, seal them in an airtight container and throw it into the garbage. Call [facility]: [phone] to be sure your drugs can be [...] aware that I should contact my doctor. Patient/Business Intelligence Reporting Analyst Signature: Date/Time: Relationship to Patient: ___ Witness Name/Signature: Date/Time: [facility] 07-10-2022 Note HNO ID: [id number] Author: Radha Peralta APRN.STRUCTURAL ENGINEERING PROJECT MANAGER Service: ? Author Type: Nurse Practitioner Type: Progress Notes Filed: 07/10/2022 1:33 PM Note Text: This note was created using MobileAwareriter. Subjective Alma Saleem is a 51 year old female. 51 year old female with no significant PMH presents for sore throat. Acute onset last night +sore throat +swollen glands Denies cough or congestion. Denies accompanying URI sx Denies difficulty handling secretions. Has used OTC Tylenol and cough drops. Denies ill contacts, states she works at [employer] The history is provided by the [...] Posterior oropharyngeal eryth (more content not included)... [facility] 07-10-2022 Instructions Radha Peralta APRN.[facility] - 07/10/2022 1:22 PM EDT [facility] [...] (eg, ice cream, popsicles). Alternative therapies -- [employer]miz[employer]ma food stores, vitamin outlets, and Internet Web [...] contaminate your hand documented in this encounter [facility] 07-10-2022 History of Present illness Narrative This note was created using MobileAwareriter. Subjective Alma Saleem is a 51 year old female. 51 year old female with no significant PMH presents for sore throat. Acute onset last night +sore throat +swollen glands Denies cough or congestion. Denies accompanying URI sx Denies difficulty handling secretions. Has used OTC Tylenol and cough drops. Denies ill contacts, states she works at [employer] The history is provided by the [...] - STREP A MOLECULAR (POC) Radha Peralta APRN.STRUCTURAL ENGINEERING PROJECT MANAGER documented in this encounter [facility] 04-23-2022 Hospital Discharge instructions Patient Education 04/23/2022 [...] until you are awake and alert. Take mafc-bzn-yewgxbn and prescription medicines only as told by [...] 06/23/2014 Document Revised: 08/15/2018 Document Reviewed: 12/22/2016 [employer] Patient Education 2020 [employer] 04/23/2022 12:25:14 Colon Polyps Colon Polyps Polyps [...] 05/29/2005 Document Revised: 12/18/2018 Document Reviewed: 12/18/2018 [employer] Patient Education 2020 [employer]. 04/23/2022 12:24:53 Colonoscopy, Adult, Care After, Yqqv-gw-Irjn Colonoscopy, Adult, Care After This sheet gives [...] are soft and easy to digest. Take tseh-roe-mhjpcxi or prescription medicines only as told by [...] 10/05/2011 Document Revised: 07/03/2018 Document Reviewed: 05/27/2017 [employer] Patient Education 2020 [employer]. Follow Up Care 03/22/2022 08:09:24 With:ALISHA JI MD Address: [address] [place] [address] [place] [address]- [phone] When: Unknown Comments:Office with contact you with pathology results. [facility] Orders: Lactated Ringers Infusion 1,000 mL, Start: 04/23/22 11:20:00 EDT, Rate: 50 mL/hr, 04/23/22 11:20:00 EDT Communication Order (scheduled) Communication Order (scheduled) Communication Order (scheduled) Discharge Sign Consent She is here for screening colonoscopy. Consent conference was held. All of her questions were addressed and she agrees to proceed. Future Appointments Appointment Date:03/08/2023 01:00:00 PM Scheduled Provider:URIAH STARKS DO Location:[facility] Appointment Type: Wellness Annual Future Scheduled Tests Radiology* MA Mammo Screening Bilateral w/ Hemant 03/07/22 [facility] 08-08-2022 Summary of episode note Discharge Instructions Thank you for allowing [place] to assist you with your healthcare needs. The following is importantdischarge information regarding your hospital visit. Your Care Team URIAH STARKS DO What to do next Scheduled Follow-Up Appointments Appointment Type When With Where Contact [facility] Wellness Annual 03/08/2023 01:00 PM EDT URIAH STARKS DO [facility] [address] [phone] Follow Up Appointments Follow Up with ALISHA JI MD When Why: Office with contact you with pathology results. Where: [address] [place] [address] Gastro[address]ology [place], [place] [phone] [phone] The Following Activity and Diet Have Been [...] until you are awake and alert. Take nliu-ezf-mbnuxqd and prescription medicines only as told by [...] 06/23/2014 Document Revised: 08/15/2018 Document Reviewed: 12/22/2016 [employer] Patient Education 2020 [employer]. Colon Polyps Polyps are tissue growths inside [...] 05/29/2005 Document Revised: 12/18/2018 Document Reviewed: 12/18/2018 [employer] Patient Education 2020 [employer]. Colonoscopy, Adult, Care After This sheet gives [...] are soft and easy to digest. Take ajsh-shz-vmpooch or prescription medicines only as told by [...] 10/05/2011 Document Revised: 07/03/2018 Document Reviewed: 05/27/2017 [employer] Patient Education 2020 [employer] Additional Information VACCINATE! IT SAVES LIVES! Members of the community who have not yet received the COVID-19 vaccine and would like to receive it can visit one of [facility] vaccine clinics. There are many vaccine clinic locations within the [facility]. For locations and available times, please visit [email or web address] It is important to note that some COVID mobile vaccine clinics are held outdoors and may be canceled in rainy or stormy conditions. To learn more about pediatric vaccinations (ages 5-11), we invite you to visit the [facility] webpage. [email or web address] [email or web address] learn more about the [email or web address] vaccine, we invite you to visit the [employer] website for a list of frequently asked questions. [email or web address] _[email or web address].pdf [facility] Patient Portal Access Instructions: Stay connected with your healthcare team and access your personal medical information anytime with the [facility] Patient Portal.If you would like a full copy of your medical records, please contact the [facility] Medical Records Department, Saturday through Saturday between 8a.m. and 4:30p.m. Please follow the directions below to access the portal: 1.Access the email account you provided upon registration to the hospital.2.Look for an invitation email from [facility].3.Open the email and access the invitation link: Accept Invitation to [facility]4.Fill in the required lott to create your account. Sign into [email or web address] with your username and password that you [...] you will allow to register on the [facility] Patient Portal for access to your information. You can also access the [facility] Patient Portal on the [employer] kj. Simply click on Health Records under [employer] and then click on the [facility] logo. HOW TO SAFELY DISPOSE OF PRESCRIPTION [...] Call your local pharmacy or go to [email or web address] to find one close to you.3.Make use of household items: Use cat litter or old coffee grounds to dispose medications if other options arenot available. Mix your drugs with these household products, seal them in an airtight container andthrow it into the garbage. Call [facility]: [phone] to be sure your drugs can be [...] After Colon Polyps Colonoscopy, Adult, Care After, Yrhy-ac-Wzez Medication Leaflets My discharge plan and instructions have been reviewed and explained to me and I,ALMA SALEEM understand my current condition and have read and understand these discharge instructions. I have received a written copy of the plan/instructions. If I have questions, I am aware that I should contactmy doctor. Patient/Business Intelligence Reporting Analyst Signature: Date/Time: Relationship to Patient: Witness Name/Signature: Date/Time: [facility]08-08-2022 Note Date of Service April 23, 2022 Chief Complaint Screening colonoscopy History of Present Illness This is a 51-year-old female who presented to our physician's assistant plant manager on March 21 for discussion ofcolonoscopy. It is screening colonoscopy in the absence of any other symptoms. Past medical historyfamily history social history reviewed. 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 assistant plant manager Physical Exam Vitals and Measurements T: 36.7 [...] ALISHA JI MD on 04/23/2022 11:51 AM [facility]08-08-2022 Anesthesiology Consult note Patient: ALMA SALEEM Age: [...] Medical BMI 45.0-49.9, adult / SNOMED CT 9068170058 / Confirmed Chronic bronchitis / SNOMED CT 559568368 / Confirmed Achilles tendon mass / SNOMED CT 7033437814 / Confirmed Systolic ejection murmur / SNOMED CT 087915798 / Confirmed Mouth sore / SNOMED CT 0414045941 / Confirmed Peripheral edema / SNOMED CT 567521595 / Confirmed, Active Problems (6) Achilles tendon [...] cartilage scoring, contouring or replacement with graft (12765). Ablation (762411961). Hysterectomy (621558535). Tubal ligation (320042602). Gallbladder (94925734). ACL - Anterior cruciate ligament rupture (111762068). EGD (esophagogastroduodenoscopy) gastric outlet reduction (1343231652). Social History Social & Psychosocial Habits Alcohol [...] Admission Weight 145.5 kg Weight Method Stated [place] Body Weight 66.24 kg Admission Body Mass [...] Person #1 We May Share HOME [place] [phone] Designated Person #1 Relationship Spouse Privacy Restrictions Requested None Height 175.3 cm Admission Weight 145.5 kg Weight Method Stated [place] Body Weight 66.24 kg Admission Body Mass Index 47.35 m2 Temperature Oral 36.7 DegC Systolic Blood Pressure NBP 153 mmHg HI Diastolic Blood Pressure NBP 104 mmHg >HHI Primary Pain Intensity 0 Pain Scale Type 0-10 Pain scale Nail Bed Color [place] Capillary Refill < 2 seconds Oxygen Therapy Room air Oxygen Saturation 97 % Abdomen Description Soft, Rounded Bowel Sounds All Quadrants Present Urinary Elimination Voiding, no difficulties Status No, per patient Skin Temperature Warm Skin Description [place], Normal for ethnicity, Dry Skin Moisture General [...] Weeks No Weight Loss No 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 Assessment and Plan Citizen Of [place] Society of Anesthesiologists (ASA) physical status classification: Class III. Anesthetic Preoperative Plan Premedication: None. Anesthetic technique: MAC. Induction: intravenously. Postoperative pain management: Per surgeon. Risks discussed: nausea, vomiting, headache, sore throat, dental injury, hypotension, allergic reaction, serious complications. Informed consent: signed by patient. Digitally Signed by SARAH LUCIO on 04/23/2022 11:35 AM [facility]03-29-2022 NoteHNO ID: [id number] Author: Zuri Taylor PA-C Service: ? Author Type: Physician Custodial Officer Type: Progress Notes Filed: 12/12/2021 6:11 PM Note Text: This note was created using [employer]. Subjective Alma Saleem is a 51 year [...] surgery. Dr. Mancera phone number given. [facility]02-06-2022 NoteHNO ID: [id number] Author: Tim Quesada PA-C Service: ? Author Type: Physician Custodial Officer Type: Progress Notes Filed: 10/22/2021 10:30 AM Note Text: This note was created using All[employer]ices. Subjective Alma Saleem is a 51 year [...] - PROAIR RESPICLICK 90 MCG/ACTUATION BREATH ACTIVATED [facility] Future Appointments Appointment Date:03/07/2022 02:00:00 PM Scheduled Provider:URIAH STARKS DO Location:[facility] Appointment Type:PC Wellness Annual [facility] Evaluation + Plan note Future Appointments Appointment Date:06/07/2023 01:30:00 PM Scheduled Provider:URIAH STARKS DO Location:[facility] Appointment Type:PC OV [facility] Evaluation + Plan note Future Appointments Appointment Date:07/24/2023 03:30:00 PM Scheduled Provider:URIAH STARKS DO Location:[facility] Appointment Type:PC OV [facility] Evaluation + Plan note Future Appointments Appointment Date:11/08/2023 03:30:00 PM Scheduled Provider:URIAH STARKS DO Location:[facility] Appointment Type:PC OV Diagnostic Tests Pending * Cortisol, Urinary Free 09/11/23 [facility] Evaluation + Plan note Future Appointments Appointment Date:11/07/2023 08:30:00 AM Scheduled Provider:STEVIE ARIZMENDI MD Location:[facility] Appointment Type:ENDO OV Appointment Date:11/08/2023 03:30:00 PM Scheduled Provider:URIAH STARKS DO Location:[facility] Appointment Type:PC OV Diagnostic Tests Pending * Salivary Cortisol,MS 10/26/23 [facility] Evaluation + Plan note Future Appointments Appointment Date:11/07/2023 08:30:00 AM Scheduled Provider:STEVIE ARIZMENDI MD Location:[facility] Appointment Type:ENDO OV Appointment Date:11/08/2023 03:30:00 PM Scheduled Provider:URIAH STARKS DO Location:[facility] Appointment Type:PC OV [facility] Evaluation + Plan note Future Appointments Appointment Date:11/21/2023 09:00:00 AM Scheduled Provider: Location:[facility] Appointment Type:ENDO Nurse Appointment Date:01/09/2024 03:15:00 PM Scheduled Provider:STEVIE ARIZMENDI MD Location:[facility] Appointment Type:ENDO OV Appointment Date:03/10/2024 02:00:00 PM Scheduled Provider:URIAH STARKS DO Location:[facility] Appointment Type:PC Wellness Annual Future Scheduled Tests Laboratory* Catecholamines,Ur.,Free,24 Hr 11/07/23 * Metanephrines, Frac, Qn, 24-Hr 11/07/23 * ACTH, Plasma 11/07/23 * Cortisol Level 11/07/23 * Estrogens Fractionated, S 11/07/23 * 17-OH Progesterone LCMS 11/07/23 * Luteinizing Hormone 11/07/23 * Thyroid Stimulating Hormone 11/07/23 * Free T4 11/07/23 * Aldosterone with Na and K, 24 Hr Ur 11/07/23 * Follicle Stimulating Hormone Level 11/07/23 * Immunoglobulin Panel 11/07/23 * [facility] Lab Send Out (Non-Blood Specimens) 11/07/23 [facility] Evaluation note* Diagnosis Pharyngitis, unspecified etiology- Primary documented in this encounter [facility] course Narrative No data available for this section [facility] Hospital Discharge instructions No data available for this section [facility] Progress note No data available for this section [facility] Summary Purpose Family History No Family History Records FoundNo Family History Records Found No data available for this section No data available for this section No data available for this section No data available for this section No data available for this section No Family History Records Found No data available for this section Advance Directives No Advanced Directives Records FoundNo Advanced Directives Records FoundNo Advanced Directives Records Found Additional Source Comments Care Team (unrecognized sect ion and content) Care Team Personnel Name: URIAH STARKS DO Position: P4 Physician - Primary Care Member Role: Primary Care Physician Address: Address: [address] [place] [address]- [place] Care Team Related Persons Name: CRISTINA SALEEM Address: Home [address] [place], [place] [id number] [place] Address: Temporary [address] [place], [place] [id number] Name: JOAQUÍN SALEEM Address: Home [address] [place], [place] [id number] [place] Name: JOAQUÍN SALEEM Address: Home [address] [place], [place] [id number] Address: Temporary [address] [place], [place] [id number] Care Team (unrecognized sect ion and content) Care Team Personnel Name: URIAH STARKS DO Position: P4 Physician - Primary Care Med Service: Active Provider Member Role: Primary Care Physician Address: Address: [address] [place] [address]- Care Team Related Persons Name: JOAQUÍN SALEEM Address: Home [address] [place], [place] [id number] Address: Temporary [address] [place], [place] [id number] Source Comments (unrecognize d section and content) In the event this informatio n is protected by the Federal Confidentiality of Alcohol and Drug Abuse Patient Records regulations: The Federal rules restrict any use of the information to criminally investigate or prosecute any alcohol or drug abuse patient.[facility] Reason for Visit (unrecogniz ed section and content) INFORMATION SOURCE (unrecogn ized section and content) DATE CREATED AUTHOR AUTHOR'S ORGANIZ ATION 04/01/2023 [facility] ([place]) DATE CREATED AUTHOR AUTHOR'S ORGANIZ ATION 11/03/2023 [facility] ([place] FOR RECORDS PERTAINING TO PATIENTS [...] BE BASED ON THE PRIMARY CLINICAL RECORDS. [facility]. provides no warranty or guarantee of the accuracy or completeness of information in this document.
== END | disposition home or self-care (01) ==
LOC: LAB 07:41
PROVIDERS: PCP Student in an Organized Health Care Education/Training Program; Referring Provider Internal Medicine Endocrinology, Diabetes & Metabolism; Visit Provider Internal Medicine Endocrinology, Diabetes & Metabolism
DX: E65 Localized adiposity (principal)
CPT/HCPCS: 36415; 82533

== ENCOUNTER → 2023-11-18 | Outpatient (CLI) | payer OTHER, SELFPAY ==
--- OUTSIDE RECORDS SUMMARY | 2023-11-18 07:29 | XMS RPT_ITS | CCD ---
Author Name Unknown Address [address] [place] [address] Organization [facility] Care Team Providers Care Vacuum Cleaner Assembler Name Role Phone RAUDEL PAYTON, DR KRUSE Primary Care Physician [phone] Gadiel Aguilar DO Primary Care Provider Jocelyn [...] MD Attending Unavaila ble ROMAR DO, DR RKUSE Primary Care Unavailable Allergies Allergy Classification Reported Allergen(s) Allergy Type Date of Onset Reaction(s) Facility (9 sources) Adhesive Tape Allergy to substance Eruption of skin (disorder) [facility] (2 sources) Adhesive Tape-Silicones; Translations: [ADHESIVE TAPE-SILICONES] Drug Intolerance 2 Other: See Comments [facility] (6 sources) Film dressing Allergy to [...] sites, # 1 EA, 0 Refill(s), Pharmacy: [facility]/pharmacy #[id number], 176.9, cm, 06/07/23 13:22:00 EDT, Height, kg, 06/07/23 13:22:00 EDT, Dosing Weight Start Date: 06/07/23 Stop Date: 07/07/23 Status: Ordered acetaminophen 325 mg / HYDROcodone bitartrate 5 mg oral tablet (1 source) Opioid Agonist Start: 05-22-2020 End: 05-25-2020 take 1 tablet by mouth every four hours as needed for pain Roy 325- 5 mg oral tablet Dose = [...] 12:59-0400 Body temperature 98.01 [degF] Radha Peralta THERMO CEMENTING FOLDER OPERATOR.REEL HOOKER Work Phone: [facility] 07-10-2022 12:59-0400 Body weight 153.32 kg Radha Peralta THERMO CEMENTING FOLDER OPERATOR.REEL HOOKER Work Phone: [facility] 07-10-2022 12:59-0400 Diastolic blood pressure 86 mm[Hg] Radha Peralta THERMO CEMENTING FOLDER OPERATOR.REEL HOOKER Work Phone: [facility] 07-10-2022 12:59-0400 Heart rate 82 /min Radha Peralta THERMO CEMENTING FOLDER OPERATOR.REEL HOOKER Work Phone: [facility] 07-10-2022 12:59-0400 Respiratory rate 16 /min Radha Peralta THERMO CEMENTING FOLDER OPERATOR.REEL HOOKER Work Phone: [facility] 07-10-2022 12:59-0400 SaO2% (BldA) [Mass fraction] 96 % Radha Peralta THERMO CEMENTING FOLDER OPERATOR.REEL HOOKER Work Phone: [facility] 07-10-2022 12:59-0400 Systolic blood pressure 142 mm[Hg] Radha Peralta THERMO CEMENTING FOLDER OPERATOR.REEL HOOKER Work Phone: [facility] 04-23-2022 12:37-0400 Diastolic Blood Pressure NBP [...] 10:39-0400 Body height 175.[address] ALISHA IJ MD [facility] 04-23-2022 10:39-0400 Body temperature 98.06 [degF] DR ALISHA JI MD [facility] 04-23-2022 10:390408 Body weight 145.[address] ALISHA JI MD [facility] Encounters Encounter Date Encounter Type Care Provider Facility Start: 11-08-2023 End: 11-12-[address] URIAH STARKS DO [facility] Start: 11-02-2023 End: 11-03-2023 ambulatory STEVIE ARIZMENDI MD Facility:B Start: 11-02-2023 End: 11-02-2023 Patient encounter procedure STEVIE ARIZMENDI MD [facility] Start: 10-30-2023 End: 10-31-2023 ambulatory STEVIE ARIZMENDI MD Facility:[facility] Start: 10-26-2023 End: 10-27-2023 ambulatory STEVIE ARIZMENDI MD Facility:[facility] Start: 10-26-2023 End: 10-26-2023 Patient encounter procedure STEVIE ARIZMENDI MD [facility] Start: 09-11-2023 End: 09-16-[address] URIAH STARKS DO Facility:[facility] Start: 09-11-2023 End: 09-15-[address] URIAH STARKS DO [facility] Start: 09-06-2023 End: 09-07-[address] URIAH STARKS DO Facility:[facility] Start: 06-13-2023 End: 06-13-2023 Emergency department patient visit HIMA SEN MD Facility:[facility] Start: 06-13-2023 End: 06-13-2023 Emergency department patient visit HIMA SEN MD [facility] Start: 05-15-2023 End: 05-16-[address] URIAH STARKS DO Facility:[facility] Start: 05-15-2023 End: 05-15-[address] URIAH STARKS DO [facility] Start: 04-01-2023 End: 04-02-[address] URIAH STARKS DO Facility:[facility] Start: 03-14-[address] URIAH STARKS DO Facili ty:B Start: 07-10-2022 End: 07-10-2022 ambulatory GADIEL AGUILAR Facility: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) DR URIAH STARKS DO Plan of Treatment Date Care Activity Detail Author Start: 05-17-2022 Influenza vaccination INFLUENZA (#1) [facility] Start: 09-16-2021 DEPRESSION ASSESSMENT DEPRESSION ASS ESSMENT [facility] Start: 2021 SHINGRIX VACCINE (1 of 2) SHINGRIX V ACCINE (1 of 2) [facility] Start: 11-01-2017 DIABETES SCREEN DIABETES SCREEN [facility] Start: 2016 COLOGUARD (FIT-DNA) COLOGUARD (FIT-D NA) [facility] Start: 2016 Colonoscopy COLONOSCOPY [facility] Start: 2016 COLORECTAL CANCER SCREENING COLORECTAL CANCER SCREENING [facility] Start: [address] COLONOGRAPHY [facility] Start: 2016 FECAL OCCULT BLOOD FECAL OCCULT BLOO D [facility] Start: 2016 LIPID SCREEN LIPID SCREEN [facility] Start: 2016 SIGMOIDOSCOPY SIGMOIDOSCOPY [facility] Start: 2011 Mammography MAMMOGRAM [facility] Start: 2001 HPV TESTING HPV TESTING [facility] Start: 1992 PAP TESTING PAP TESTING [facility] Start: 1990 Urine microalbumin profile DTAP,TDAP ,TD (1 - Tdap) [facility] Start: 1989 HEPATITIS C SCREENING HEPATITIS C SC REENING [facility] Start: 1989 HIV SCREENING HIV SCREENING [facility] Start: 01-14-1972 COVID-19 VACCINE (#1) COVID-19 VACCI NE (#1) [facility] Start: 1971 HEPATITIS B (1 of 3 - 3-dose series) HEPATITIS B (1 of 3 - 3-dose series) [facility] Immunizations Immunization Date Immunization Notes Care Provider Fa cility 03-08-2023 tetanus toxoid, redu howard diphtheria toxoid, and acellular pertussis vaccine, adsorbed; Translations: [Boostrix (Tdap)] DR URIAH STARKS DO [facility] Payers Date Payer Category Payer Unknown 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[employer] PLUS [id number] 2019-Present [phone] [address] [place] [address] PPO [id number] 2019 Unknown [id number] 1971 Unknown [id number] 1971 Unknown [id number] 1971 Unknown [id number] [id number] 1971 Unknown [id number] [id number] 1971 Unknown [id number] [id number] 1971 Unknown [id number] [id number] 1971 Unknown [id number] [id number] 1971 Unknown [id number] [id number] 1971 Unknown [id number] [id number] 1971 Unknown [id number] [id number] 1971 Unknown [id number] 1971 Unknown [id number] Social History Date Type Detail Facility Start: 01-03-2022 End: 09-06-2023 Tobacco smoking status Never smoked tobacco (finding) [facility] Sex Assigned At Female [facility] Start: 07-10-2022 Tobacco use and exposure Smokeless tobacco non-user [facility] Work Phone: Start: 07-10-2022 Alcohol intake Current drinke r of alcohol (finding) [facility] Start: 1971 Sex Assigned At Not on file C [facility] Sex Assigned At Sex [facility] Functional Status Date Assessment Result Facility 06-13-2023 Functional Status ID band on, Call device within reach, Bed in low position, Wheels locked, Upper/Half-Length side-rails up [facility] 04-23-2022 Functional Status Independent [facility] 04-23-2022 Functional Status Awake [facility] Mental Status Date Assessment Result Facility 06-13-2023 Mental Status Oriented x 4 [facility] 04-23-2022 Mental Status Orientation Oriented x 4 [facility] 04-23-2022 Mental Status [facility] Clinical Notes 10-22-2021 to 06-13-2023 Patient InstructionsRadha Peralta APRN.REEL HOOKER - 07/10/2022 1:10 PM EDT Note Date [...] only small amounts of salt when cooking. [employer] food labels to track how much salt [...] that have heart stimulants. This includes many qgau-mqn-qwaoheg cold and sinus decongestant pills and sprays, as well as diet pills. Check the warnings about high blood pressure on the label. Before purchasing any yhxt-frw-ptesdfd medicines or supplements, always ask the pharmacist [...] one of these at most pharmacies. The [place] [employer] recommends the following guidelines for [...] face You have problems speaking or seeing 8262-6691 [employer]. [address] [place] [address]. All rights reserved. This information is not intended as a substitute for professional medical care. Always follow your healthcare professional's instructions. Follow Up Care 06/13/2023 08:36:45 With:URIAH STARKS DO Address: [address] [place] [phone] When:2-4 days [facility] 06-13-2023 Note Discharge Instructions Thank you for allowing [facility] to assist you with your healthcare needs. The following is important discharge information regarding your hospital visit. Diagnosis from Today's Visit High blood pressure Hypertension What to Do Next Instructions from Your Care Team No qualifying data available. Post Acute Orders No qualifying data available. You Need to Schedule the Following Appointments Follow Up with URIAH STARKS DO When Within 2-4 days Where: [address] [place] [phone] Allergies Tape (Rash) Tegaderm (blisters) Medications Please [...] may report side effects to FDA at 6-316-ZQG-9612. What other drugs will affect hydrochlorothiazide? Taking [...] drugs may affect hydrochlorothiazide, including prescription and gxxj-pxq-dlbrlni medicines, vitamins, and herbal products. Not all [...] to ensure that the information provided by [employer]. ('[employer]') is accurate, up-to-date, and complete, but no guarantee is made to that effect. Drug information contained herein may be time sensitive. internetstores information has been compiled for use by healthcare practitioners and consumers in the [place] and therefore internetstores does not warrant that uses outside of the [place] are appropriate, unless specifically indicated otherwise. [employer] drug information does not endorse drugs, diagnose patients or recommend therapy. [employer] drug information is an informational resource designed [...] effective or appropriate for any given patient. [employer]ores does not assume any responsibility for any aspect of healthcare administered with the aid of information internetstores provides. The information contained herein is not intended to cover all possible uses, directions, precautions, warnings, drug interactions, allergic reactions, or adverse effects. If you have questions about the drugs you are taking, check with your doctor, nurse or pharmacist. Copyright 2357-3908 [facility] [employer]. Version: 13.. Revision Date: 10/25/2020. Education Materials [...] only small amounts of salt when cooking. [facility] food labels to track how much [...] that have heart stimulants. This includes many iryk-bbi-tbjpbuo cold and sinus decongestant pills and sprays, as well as diet pills. Check the warnings about high blood pressure on the label. Before purchasing any iqxv-dwx-emlgoaz medicines or supplements, always ask the pharmacist [...] one of these at most pharmacies. The [employer] [employer] recommends the following guidelines for [...] face You have problems speaking or seeing 0501-5170 [employer]. [address] [place] [address]. All rights reserved. This information is not intended as a substitute for professional medical care. Always follow your healthcare professional's instructions. Additional Information VACCINATE! IT SAVES LIVES! Members of the community who have not yet received the COVID-19 vaccine and would like to receive it can visit one of [facility] vaccine clinics. There are many vaccine clinic locations within the [facility]. For locations and available times, please visit [email or web address] [email or web address] It is important to note that some COVID mobile vaccine clinics are held outdoors and may be canceled in rainy or stormy conditions. To learn more about pediatric vaccinations (ages 5-11), we invite you to visit the [facility] webpage. https://www.[facility].org/pag es/7943-Ebgsa-Zhhdlglmdwo-Frequent os-Qcywd-Vqmmaafgg.html To learn more about the COVID-19 vaccine, we invite you to visit the CDC website for a list of frequently asked questions. https://www.cdc.gov/coronavirus/-ncov/vaccines/faq.html [employer] Patient Portal Access Instructions: Stay connected with your healthcare team and access your personal medical information anytime with the [employer] Patient Portal. If you would like a full copy of your medical records please contact the [facility] Medical Records Department Saturday through Saturday between 8a.m. and 4:30p.m. Please follow the directions below to access the portal: 1.Access the email account you provided upon registration to the [facility].2.Look for an invitation email from [facility].3.Open the email and access the invitation link: Accept Invitation to [employer]4.Fill in the required lott to create your account. Sign into [email or web address] with your username and password that you [...] you will allow to register on the [employer] Patient Portal for access to your information. You can also access the [facility] Patient Portal on the [employer]. Simply click on Health Records under Health Data and then click on the [employer] logo. HOW TO SAFELY DISPOSE OF PRESCRIPTION [...] Call your local pharmacy or go to http://bit.StrongLoop/2U0Wk3v to find one close to you.3.Make use of household items: Use cat litter or old coffee grounds to dispose medications if other options are not available. Mix your drugs with these household products, seal them in an airtight container and throw it into the garbage. Call [facility]: [phone] to be sure your drugs can be [...] aware that I should contact my doctor. Patient/Orchard Hand Signature: Date/Time: Relationship to Patient: ___ Witness Name/Signature: Date/Time: [facility] 07-10-2022 Note HNO ID: [id number] Author: Radha Peralta APRN.REEL HOOKER Service: ? Author Type: Nurse Practitioner Type: Progress Notes Filed: 07/10/2022 1:33 PM Note Text: This note was created using Staff Rankerriter. Subjective Alma Saleem is a 51 year old female. 51 year old female with no significant PMH presents for sore throat. Acute onset last night +sore throat +swollen glands Denies cough or congestion. Denies accompanying URI sx Denies difficulty handling secretions. Has used OTC Tylenol and cough drops. Denies ill contacts, states she works at [employer] The history is provided by the [...] Posterior oropharyngeal eryth (more content not included)... [facility] 07-10-2022 Instructions Radha Peralta APRN.[facility] - 07/10/2022 1:22 PM EDT EXPRESS [...] (eg, ice cream, popsicles). Alternative therapies -- Blippar food stores, vitamin outlets, and Internet Web [...] contaminate your hand documented in this encounter [facility] 07-10-2022 History of Present illness Narrative This note was created using Staff Rankerriter. Subjective Alma Saleem is a 51 year old female. 51 year old female with no significant PMH presents for sore throat. Acute onset last night +sore throat +swollen glands Denies cough or congestion. Denies accompanying URI sx Denies difficulty handling secretions. Has used OTC Tylenol and cough drops. Denies ill contacts, states she works at [employer] The history is provided by the [...] - STREP A MOLECULAR (POC) Radha Peralta APRN.REEL HOOKER documented in this encounter [facility] 04-23-2022 Hospital Discharge instructions Patient Education [...] until you are awake and alert. Take ooje-ynf-ntucukj and prescription medicines only as told by [...] 06/23/2014 Document Revised: 08/15/2018 Document Reviewed: 12/22/2016 [employer] Patient Education 2020 [employer] 04/23/2022 12:25:14 Colon Polyps Colon Polyps [...] 05/29/2005 Document Revised: 12/18/2018 Document Reviewed: 12/18/2018 [employer] Patient Education 2020 [employer]. 04/23/2022 12:24:53 Colonoscopy, Adult, Care After, Nkrf-ir-Pqju Colonoscopy, Adult, Care After This sheet gives [...] are soft and easy to digest. Take lwuw-tdf-pcftalj or prescription medicines only as told by [...] 10/05/2011 Document Revised: 07/03/2018 Document Reviewed: 05/27/2017 [employer] Patient Education 2020 [employer]. Follow Up Care 03/22/2022 08:09:24 With:ALISHA JI MD Address: [address] [place] [address] [place] [address]- [phone] When: Unknown Comments:Office with contact you with [...] Date:03/08/2023 01:00:00 PM Scheduled Provider:URIAH STARKS DO Location:[facility] Appointment Type: Wellness Annual Future Scheduled Tests Radiology* MA Mammo Screening Bilateral w/ Hemant 03/07/22 [facility] 08-08-2022 Summary of episode note Discharge Instructions Thank you for allowing [facility] to assist you with your healthcare needs. The following is importantdischarge information regarding your hospital visit. Your Care Team URIAH STARKS DO What to do next Scheduled Follow-Up Appointments Appointment Type When With Where Contact [facility] Wellness Annual 03/08/2023 01:00 PM EDT URIAH STARKS DO [facility] [address] [phone] Follow Up Appointments Follow Up with ALISHA JI MD When Why: Office with contact you with pathology results. Where: [address] [place] [address] Gastro[address] [place], [place] [phone] [phone] The Following Activity and Diet Have Been [...] until you are awake and alert. Take zhpt-rfr-vijzuda and prescription medicines only as told by [...] 06/23/2014 Document Revised: 08/15/2018 Document Reviewed: 12/22/2016 [employer] Patient Education 2020 [employer]. Colon Polyps Polyps are tissue growths inside [...] 05/29/2005 Document Revised: 12/18/2018 Document Reviewed: 12/18/2018 [employer] Patient Education 2020 [employer]. Colonoscopy, Adult, Care After This sheet gives [...] are soft and easy to digest. Take test-ykc-lscrtfm or prescription medicines only as told by [...] 10/05/2011 Document Revised: 07/03/2018 Document Reviewed: 05/27/2017 [employer] Patient Education 2020 [employer] Additional Information VACCINATE! IT SAVES LIVES! Members of the community who have not yet received the COVID-19 vaccine and would like to receive it can visit one of [facility] vaccine clinics. There are many vaccine clinic locations within the [facility]. For locations and available times, please visit [email or web address]/. It is important to note that some COVID mobile vaccine clinics are held outdoors and may be canceled in rainy or stormy conditions. To learn more about pediatric vaccinations (ages 5-11), we invite you to visit the [facility] webpage. https://www.akZIO Studioss.org/pages/5593-Uqycn-Uutcjmsxqrs-Qcxnzypews-Feuqd-Yvn stions.htmlTo learn more about the COVID-19 vaccine, we invite you to visit the [employer] website for a list of frequently asked questions. https://tuyet.org/assets/Nzyoitju-afs-Qyaksetp/pxfok-Byjlejx-Ojqlpjhmji _Asked-Questions.pdf [facility] Patient Portal Access Instructions: Stay connected with your healthcare team and access your personal medical information anytime with the [employer] Patient Portal.If you would like a full copy of your medical records, please contact the [facility] Medical Records Department, Saturday through Saturday between 8a.m. and 4:30p.m. Please follow the directions below to access the portal: 1.Access the email account you provided upon registration to the hospital.2.Look for an invitation email from [facility].3.Open the email and access the invitation link: Accept Invitation to [facility]4.Fill in the required lott to create your account. Sign into [email or web address] with your username and password that you [...] you will allow to register on the [employer] Patient Portal for access to your information. You can also access the [employer] [facility] Patient Portal on the VideoLens kj. Simply click on Health Records under [employer] Systems and then click on the [employer] logo. HOW TO SAFELY DISPOSE OF PRESCRIPTION [...] Call your local pharmacy or go to http://Midokura.StrongLoop/5W1Az8f to find one close to you.3.Make use of household items: Use cat litter or old coffee grounds to dispose medications if other options arenot available. Mix your drugs with these household products, seal them in an airtight container andthrow it into the garbage. Call [facility]: [phone] to be sure your drugs can be [...] After Colon Polyps Colonoscopy, Adult, Care After, Dexv-gz-Fkqh Medication Leaflets My discharge plan and instructions have been reviewed and explained to me and I,ALMA SALEEM understand my current condition and have read and understand these discharge instructions. I have received a written copy of the plan/instructions. If I have questions, I am aware that I should contactmy doctor. Patient/Orchard Hand Signature: Date/Time: Relationship to Patient: Witness Name/Signature: Date/Time: [facility]08-08-2022 Note Date of Service April 23, 2022 Chief Complaint Screening colonoscopy History of Present Illness This is a 51-year-old female who presented to our physician's tax accounting assistant on March 21 for discussion ofcolonoscopy. It is screening colonoscopy in the absence of any other symptoms. Past medical historyfamily history social history reviewed. 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 tax accounting assistant Physical Exam Vitals and Measurements T: 36.7 [...] Medical BMI 45.0-49.9, adult / SNOMED CT 1752204907 / Confirmed Chronic bronchitis / SNOMED CT 318807011 / Confirmed Achilles tendon mass / SNOMED CT 4526103460 / Confirmed Systolic ejection murmur / SNOMED CT 859256719 / Confirmed Mouth sore / SNOMED CT 5690645343 / Confirmed Peripheral edema / SNOMED CT 340409657 / Confirmed, Active Problems (6) Achilles tendon [...] cartilage scoring, contouring or replacement with graft (57646). Ablation (381686934). Hysterectomy (170109691). Tubal ligation (088673226). Gallbladder (19027791). ACL - Anterior cruciate ligament rupture (425897620). EGD (esophagogastroduodenoscopy) gastric outlet reduction (0765448270). Social History Social & Psychosocial Habits Alcohol [...] Admission Weight 145.5 kg Weight Method Stated [place] Body Weight 66.24 kg Admission Body Mass [...] Person #1 We May Share HOME [place] [phone] Designated Person #1 Relationship Spouse Privacy Restrictions Requested None Height 175.3 cm Admission Weight 145.5 kg Weight Method Stated [place] Body Weight 66.24 kg Admission Body Mass Index 47.35 m2 Temperature Oral 36.7 DegC Systolic Blood Pressure NBP 153 mmHg HI Diastolic Blood Pressure NBP 104 mmHg >HHI Primary Pain Intensity 0 Pain Scale Type 0-10 Pain scale Nail Bed Color Tula Capillary Refill < 2 seconds Oxygen Therapy Room air Oxygen Saturation 97 % Abdomen Description Soft, Rounded Bowel Sounds All Quadrants Present Urinary Elimination Voiding, no difficulties Status No, per patient Skin Temperature Warm Skin Description [place], Normal for ethnicity, Dry Skin Moisture General [...] Weeks No Weight Loss No Allergies Yes Dry Pan Feeder On Yes Consent Form Signed Yes Patient [...] evident Teaching Method Explanation Preferred Written Language Persian Preferred Spoken Language Persian Pre Procedure/Surgery Education Appropriate expectations Information Given [...] Day Patient History . Assessment and Plan [place] [employer] (ASA) physical status classification: Class III. Anesthetic Preoperative Plan Premedication: None. Anesthetic technique: MAC. Induction: intravenously. Postoperative pain management: Per surgeon. Risks discussed: nausea, vomiting, headache, sore throat, dental injury, hypotension, allergic reaction, serious complications. Informed consent: signed by patient. Digitally Signed by SARAH LUCIO on 04/23/2022 11:35 AM [facility]03-29-2022 NoteHNO ID: [id number] Author: Zuri Taylor PA-C Service: ? Author Type: Physician Associate Art Director Type: Progress Notes Filed: 12/12/2021 6:11 PM Note Text: This note was created using Revstr. Subjective Alma Saleem is a 51 year [...] surgery. Dr. Mancera phone number given. [facility]02-06-2022 NoteHNO ID: [id number] Author: Tim Quesada PA-C Service: ? Author Type: Physician Associate Art Director Type: Progress Notes Filed: 10/22/2021 10:30 AM Note Text: This note was created using Revstr. Subjective Alma Saleem is a 51 year [...] PROAIR RESPICLICK 90 MCG/ACTUATION BREATH ACTIVATED [facility] Future App[facility]ments Appointment Date:03/07/2022 02:00:00 PM Scheduled Provider:URIAH STARKS DO Location:[facility] Appointment Type:PC Wellness Annual [facility] Evaluation + Plan note Future Appointments Appointment Date:06/07/2023 01:30:00 PM Scheduled Provider:URIAH STARKS DO Location:[facility] Appointment Type:PC OV [facility] Evaluation + Plan note Future Appointments Appointment Date:07/24/2023 03:30:00 PM Scheduled Provider:URIAH STARKS DO Location:[facility] Appointment Type:PC OV [facility] Evaluation + Plan note Future Appointments Appointment Date:11/08/2023 03:30:00 PM Scheduled Provider:URIAH STARKS DO Location:[facility] Appointment Type:PC OV Diagnostic Tests Pending * Cortisol, Urinary Free 09/11/23 [facility] Evaluation + Plan note Future Appointments Appointment Date:11/07/2023 08:30:00 AM Scheduled Provider:STEVIE ARIZMENDI MD Location:[facility] Appointment Type:ENDO OV Appointment Date:11/08/2023 03:30:00 PM Scheduled Provider:URIAH STARKS DO Location:[facility] Appointment Type:PC OV Diagnostic Tests Pending * Salivary Cortisol,MS 10/26/23 [facility] Evaluation + Plan note Future Appointments Appointment Date:11/07/2023 08:30:00 AM Scheduled Provider:STEVIE ARIZMENDI MD Location:[facility] Appointment Type:ENDO OV Appointment Date:11/08/2023 03:30:00 PM Scheduled Provider:URIAH STARKS DO Location:[facility] Appointment Type:PC OV [facility] Evaluation + Plan note Future Appointments Appointment Date:11/21/2023 09:00:00 AM Scheduled Provider: Location:[facility] Appointment Type:ENDO Nurse Appointment Date:01/09/2024 03:15:00 PM Scheduled Provider:STEVIE ARIZMENDI MD Location:[facility] Appointment Type:ENDO OV Appointment Date:03/10/2024 02:00:00 PM Scheduled Provider:URIAH STARKS DO Location:[facility] Appointment Type:PC Wellness Annual Future [...] Level 11/07/23 * Immunoglobulin Panel 11/07/23 * [facility] Send Out (Non-Blood Specimens) 11/07/23 [facility] Evaluation note* Diagnosis Pharyngitis, unspecified etiology- Primary documented in this encounter [facility] course Narrative No data available [...] Role: Primary Care Physician Address: Address: [address] [facility] [place] [address]- [place] Care Team Related Persons Name: CRISTINA SALEEM Address: Home [address] [place], [place] [id number] [place] Address: Temporary [address] [place], [place] [id number] Name: JOAQUÍN SALEEM Address: Home [address] [place], [place] [id number] [place] Name: JOAQUÍN SALEEM Address: Home [address] [place], [place] [id number] Address: Temporary [address] [place], [place] [id number] Care Team (unrecognized sect ion and content) Care Team Personnel Name: URIAH STARKS DO Position: P4 Physician - Primary Care Med Service: Active Provider Member Role: Primary Care Physician Address: Address: [address] [place] [address]- Care Team Related Persons Name: JOAQUÍN SALEEM Address: Home [address] [place], [place] [id number] Address: Temporary [address] [place], [place] [id number] Source Comments (unrecognize d section and content) In the event this informatio n is protected by the Federal Confidentiality of Alcohol and Drug Abuse Patient Records regulations: The Federal rules restrict any use of the information to criminally investigate or prosecute any alcohol or drug abuse patient.[facility] Reason for Visit (unrecogniz ed section and content) INFORMATION SOURCE (unrecogn ized section and content) DATE CREATED AUTHOR AUTHOR'S ORGANIZ ATION 04/01/2023 [facility] ([place]) DATE CREATED AUTHOR AUTHOR'S ORGANIZ ATION 11/03/2023 [facility] ([place]) FOR RECORDS PERTAINING TO PATIENTS [...] BE BASED ON THE PRIMARY CLINICAL RECORDS. [facility] [employer] [facility]. provides no warranty or guarantee of the accuracy or completeness of information in this document.
[2023-11-22 16:09] LABS: Dopamine, 24Ur 393 ug/24 hr (0-510); Dopamine, UR 154 ug/L (Undefined); Epinephrine, 24Ur < 8 ug/24 hr (0-20); Epinephrine, Ur < 3 ug/L (Undefined); Norepinephrine, 24Ur 54 ug/24 hr (0-135); Norepinephrine, Ur 21 ug/L (Undefined)
== END | disposition home or self-care (01) ==
LOC: LAB 07:26
PROVIDERS: PCP Student in an Organized Health Care Education/Training Program; Visit Provider Internal Medicine Endocrinology, Diabetes & Metabolism
DX: E65 Localized adiposity (principal)
CPT/HCPCS: 81050; 82384